=== PATIENT | female | born 1955 | race Caucasian/White ===

== ENCOUNTER 2023-05-03 08:29 | Outpatient (OUT) | payer MEDICARE, OTHER, SELFPAY ==
[2023-05-03 09:22] LABS: Basophils Percent Auto 0.6 % (0.2-2.0); Eosinophils Absolute Auto 0.1 10^3/uL (0.0-0.7); Eosinophils Percent Auto 1.2 % (0.9-7.0); Hematocrit 41.6 % (36.0-48.0); Hemoglobin 13.5 g/dL (12.0-16.0); Immature Granulocytes Abs Auto 0.02 10^3/uL (0.00-0.03); Immature Granulocytes Pct Auto 0.4 % (0.0-0.5); Lymphocytes Absolute Auto 1.3 10^3/uL (1.2-3.8); Lymphocytes Percent Auto 24.7 % (20.5-60.0); Mean Corpuscular HGB Conc 32.5 g/dL (29.9-35.2); Mean Corpuscular Hemoglobin 30.8 pg (26.7-34.0); Mean Corpuscular Volume 94.8 fL (81.0-99.0); Mean Platelet Volume 10.1 fL (9.5-13.5); Monocytes Absolute Auto 0.4 10^3/uL (0.3-0.8); Monocytes Percent Auto 7.5 % (1.7-12.0); Neutrophils Absolute Auto 3.3 10^3/uL (1.4-6.5); Neutrophils Percent Auto 65.6 % (43.0-75.0); Platelet Count 258 10^3/uL (150-450); Red Blood Count 4.39 10^6/uL (4.20-5.40); Red Cell Distribution Width 13.2 % (11.0-15.0); White Blood Count 5.1 10^3/uL (4.0-11.0)
[2023-05-03 09:47] LABS: Anion Gap 11.7; Calcium 8.8 mg/dL (8.5-10.1); Carbon Dioxide 29.4 mmol/L (21.0-32.0); Chloride 102 mmol/L (98-107); Estimated GFR (African America >60 (>=60); Estimated GFR (Non-African Ame >60 (>=60); Glucose 92 mg/dL (74-106); Potassium 4.1 mmol/L (3.5-5.1); Sodium 139 mmol/L (136-145); Thyroid Stimulating Hormone 3.408 uIU/mL (0.358-3.740)
== END 2023-05-03 08:30 | disposition home or self-care (01) ==
LOC: LAB 08:34
PROVIDERS: PCP Internal Medicine; Visit Provider Internal Medicine
DX: R53.83 Other fatigue (principal); E78.01 Familial hypercholesterolemia; E55.9 Vitamin D deficiency, unspecified; E53.8 Deficiency of other specified B group vitamins
CPT/HCPCS: 36415; 80048; 82306; 82607; 84443; 85025

== ENCOUNTER 2024-05-03 08:26 | Outpatient (OUT) | payer OTHER, SELFPAY ==
[2024-05-03 09:21] LABS: Basophils Percent Auto 0.6 % (0.2-2.0); Eosinophils Percent Auto 0.8 % (0.9-7.0); Hemoglobin 13.3 g/dL (12.0-16.0); Immature Granulocytes Abs Auto 0.01 10^3/uL (0.00-0.03); Immature Granulocytes Pct Auto 0.2 % (0.0-0.5); Lymphocytes Absolute Auto 1.4 10^3/uL (1.2-3.8); Mean Corpuscular HGB Conc 32.4 g/dL (29.9-35.2); Mean Corpuscular Hemoglobin 30.4 pg (26.7-34.0); Mean Corpuscular Volume 93.8 fL (81.0-99.0); Mean Platelet Volume 10.1 fL (9.5-13.5); Monocytes Absolute Auto 0.4 10^3/uL (0.3-0.8); Monocytes Percent Auto 8.3 % (1.7-12.0); Neutrophils Absolute Auto 2.9 10^3/uL (1.4-6.5); Neutrophils Percent Auto 61.1 % (43.0-75.0); Platelet Count 254 10^3/uL (150-450); Red Blood Count 4.37 10^6/uL (4.20-5.40); Red Cell Distribution Width 13.1 % (11.0-15.0); White Blood Count 4.7 10^3/uL (4.0-11.0)
[2024-05-03 09:45] LABS: Alanine Aminotransferase 26 U/L (14-59); Albumin Globulin Ratio 1.3; Albumin Level 3.7 g/dL (3.4-5.0); Alkaline Phosphatase 77 U/L (46-116); Anion Gap 13.5; Aspartate Amino Transferase 10 U/L (15-37); BUN Creatinine Ratio 17.5; Bilirubin Total 0.6 mg/dL (0.2-1.0); Calcium 8.6 mg/dL (8.5-10.1); Carbon Dioxide 27.9 mmol/L (21.0-32.0); Chloride 105 mmol/L (98-107); Chol HDL Ratio 4.1; Cholesterol 256 mg/dL (<=200); Estimated GFR (African America >60 (>=60 mL/min/1.73m^2); Estimated GFR (Non-African Ame 57 (>=60 mL/min/1.73m^2); Globulin 2.9 g/dL; Glucose 89 mg/dL (74-106); HDL Cholesterol 63 mg/dL (40-60); Potassium 4.4 mmol/L (3.5-5.1); Sodium 142 mmol/L (136-145); Thyroid Stimulating Hormone 2.685 uIU/mL (0.358-3.740); Total Protein 6.6 g/dL (6.4-8.2); Triglycerides 123 mg/dL (<=150); VLDL CHOLESTEROL 24.6 mg/dL
[2024-05-04 04:08] LABS: Vitamin B12 197 pg/mL (232-1245)
== END 2024-05-03 08:27 | disposition home or self-care (01) ==
LOC: LAB 08:28
PROVIDERS: PCP Internal Medicine; Visit Provider Internal Medicine
DX: E55.9 Vitamin D deficiency, unspecified (principal); E03.9 Hypothyroidism, unspecified; D64.9 Anemia, unspecified; E78.00 Pure hypercholesterolemia, unspecified; R53.83 Other fatigue
CPT/HCPCS: 36415; 80053; 80061; 82306; 82607; 84443; 85025

== ENCOUNTER 2025-05-11 09:30 | Outpatient (OUT) | payer OTHER, SELFPAY ==
--- OUTSIDE RECORDS SUMMARY | 2025-05-11 09:35 | XMS_ITS | CCD ---
Author Organization [facility] Care Team Providers Care Matrix Repairer Name Role Phone Jose Patel Primary Care Provider JOSE PATEL Referring Unavailable JOSE PATEL Primary Care Unavailable ANABEL TRIPP Referring Unavailable JOSE PATEL Primary Care Unavailable Jose Patel Primary Care Provider [phone] Jose Patel Primary Care Provider JOSE PATEL Primary Care Physician DO Jose Patel Primary Care Provider [phone] MD Perez Meyers Attending Provider [phone] REQUEST, NONE LISTED Consulting Unavaila ble REQUEST, NONE LISTED Admitting Unavaila ble REQUEST, NONE LISTED Attending Unavaila ble AMANDA, DR GARCIA Primary Care Unavailable REQUEST, NONE LISTED Admitting Unavaila ble REQUEST, NONE LISTED Attending Unavaila ble BALL, DR GARCIA Primary Care Unavailable REQUEST, NONE LISTED Consulting Unavaila ble REQUEST, NONE LISTED Admitting Unavaila ble REQUEST, NONE LISTED Attending Unavaila ble BALL, DR GARCIA Primary Care Unavailable REQUEST, NONE LISTED Consulting Unavaila ble DO Jose Patel Primary Care Provider MD Perez Meyers Attending Provider Jose Ptael Unavailable Jose Patel MD Primary Care Provider Jose Patel DO Primary Care Provider Perez Meyers MD Attending Provider [phone] Perez Meyers Attending Unavailable Perez Meyers Admitting Unavailable Jose Patel Primary Care Unavailable Jose Patel MD Primary Care Provider Jose Patel DO Primary Care Provider TOMER BUSTAMANTE Attending Unavailable PEREZ MEYERS Referring Unavailable TOMER BUSTAMANTE Attending Unavailable PEREZ MEYERS Attending Unavailable Allergies Allergy ClassificationReported Allergen(s)Allergy TypeDate of OnsetReaction(s) FacilityOpioid Agonists (1 source)CodeineDrug Aaqcujs80-93-1370OfwblodswvsSnvhkmwqd Clinic (14 sources)Codeine; Translations: [codeine]Drug Rxrpfoo54-97-7443Mxjiknx (substance), GI intolerance, OtherFisher [facility] ([facility] source)patient allergy list reviewed by nurse or physiciaPropensity to adverse umnxksjgg45-84-8394Rdombkm:DND Consulting Other (1 source)CodeineDrug Kuglqxj62-86-8019FapislapsNationwide Children'S Hospital Repository Medications Current Medications MedicationDrug Class(es)DatesSig (Normalized)Sig (Original)plenvu 140 gm solution reconstituted (4 sources)Osmotic Laxative, Vitamin CStart: 78-79-5962Xanpap 140 GM dose 1 pouch at 4pm, dose 2 pouch A & B at 11pm Orally BID for 1 days BIN:[id number] PCN: [id number] GROUP:[id number] ID:[id number] October, ActiveCalcium (6 sources)Phosphate Binder, CalciumCALCIUM PO Take by mouth in the morning and in the evening. ActiveCALCIUM PO Take by mouth twice a day. ActiveCalcium- Vitamin D3-Vitamin K (Viactiv) 650 mg-12.5 mcg-40 mcg tablet,chewable (1 source)Start: 03-85-1875Ayxfiuz-Vitamin D3-Vitamin K (Viactiv) 650 mg-12.5 mcg-40 mcg tablet,chewable Active TAB PO May 10, 2024 12:00amdocusate sodium 100 mg oral capsule (2 sources)Start: 36-24-6667fxte 1 capsule by mouth twice daily as needed for constipationColace 100 mg Cap 100 mg = 1 cap(s), Oral, BID, PRN for constipation, # 20 cap(s), Refills(s) 0 Start Date: 09/26/21 Status: Ordered ergocalciferol 1.25 mg oral capsule (5 sources)Provitamin D2 CompoundStart: 65-53-3905hxrr 1 capsule by mouth every weekErgocalciferol (Vitamin D2) 1,250 mcg (50,000 unit) capsule Active 1250 MCG PO every week May 10, 2024 12:00amStart: 03-37-0580ndqc 1 capsule by mouth every week as neededErgocalciferol 14877 UNIT 1 capsule Orally Once weekly for 90 days October, Not-Taking/PRNStart: 33-82-9669nequ 1 capsule by mouth every weekErgocalciferol 88039 UNIT 1 capsule Orally Once weekly for 90 days October, Not-Takinghydrocortisone acetate 25 mg rectal suppository (3 sources)CorticosteroidStart: 01-78-8240amnksajzyhzvqp (Anusol-HC) 25 MG suppository Indications: Bleeding hemorrhoids Insert 1 suppositorytwice daily for 2 weeks. 28 suppository 04/22/2024 ActiveMultiple Vitamins Tab (2 sources)Start: 99-05-5829Rnjtcicn Vitamins Tab 1 tab(s), Chewed, Daily, Refill(s) 0 Start Date: 09/25/21 Status: Orderedpolyethylene glycol 3350 29787 mg powder for oral solution (2 sources)Osmotic LaxativeStart: 69-24-8347MzrjThg oral powder for reconstitution 17 gram, Oral, Daily, 255 gram, Refill(s) 0, dissolve in water before taking Start Date: 09/26/21 Status: Orderedsolifenacin succinate 5 mg oral tablet (6 sources)Cholinergic Muscarinic AntagonistStart: 04-22-2024 End: 51-76-3451efwt 1 tablet by mouth once dailysolifenacin (VESIcare) 5 MG tablet Indications: OAB (overactive bladder) Take 1 tablet (5 mg) by mouth Daily Swallow tablet whole; do not crush, chew, or split. 30 tablet 11 04/22/2024 04/22/2025 ActiveViactiv 500-500-40 MG-UNT-MCG (4 sources)take 1 tablet by mouth once dailyViactiv 500-500-40 MG-UNT-MCG 1 tablet with a meal Orally Once a day ActiveViactiv Multi-Vitamin (2 sources)Start: 35-84-0876Joifojx Multi-Vitamin 1 tab(s), Chewed, Daily, Refill(s) 0 Start Date: 09/25/21 Status: Orderedvitamin b12 1 mg/ml injectable solution (4 sources)Vitamin G31Fmtal: 85-42-4626Ktooppksyjnjfp 1000 MCG/ML 1 ml Injection once a month Jan, ActiveStart: 06-21-5786Mezlmklbwirvve 1000 MCG/ML 1 ml Injection once a month Jan, ActiveVitamin D3 1000 intl units oral capsule (2 sources)Start: 66-73-3169wglo 1 capsule by mouth once dailyVitamin D3 1000 intl units oral capsule 25 mcg = 1 cap(s), Oral, Daily, Refills(s) 0 Start Date: 09/25/21 Status: Ordered Completed/Discontinued Medications MedicationDrug Class(es)DatesSig (Normalized)Sig (Original)CA CARBONATE/VITAMIN D3/VIT K (VIACTIV ORAL) (1 source)CA CARBONATE/VITAMIN D3/VIT K (VIACTIV ORAL) Take by mouth once daily. 0 ActiveComment on above:Take by mouth once daily.Calcium Carbonate / vitamin D3 (1 source)CALCIUM CARBONATE/VITAMIN D3 (VITAMIN D-3 ORAL) Take 500 Units by mouth. 0 ActiveComment on above:Take 500 Units by mouth.calcium, elemental, Tab (1 source)calcium, elemental, Tab Take by mouth twice daily. 0 ActiveComment on above:Take by mouth twice daily.CYANOCOBALAMIN, VITAMIN B-12, (VITAMIN B-12 INJECTION) (1 source)CYANOCOBALAMIN, VITAMIN B-12, (VITAMIN B-12 INJECTION) by INJECTION(UNSPECIFIED PARENTERAL ROUTES) route once every month. 0 ActiveComment on above:by INJECTION(UNSPECIFIED PARENTERAL ROUTES) route once every month.24 hr darifenacin 7.5 mg extended release oral tablet (6 sources)Cholinergic Muscarinic AntagonistStart: 05-10-2024 End: 67-07-8573ocvy 1 tablet by mouth once dailyDarifenacin 7.5 mg tablet extended release 24 hr Discontinued 7.5 MG PO Daily May 10, 2024 12:00am May 10, 2024 10:35amEnablex 7.5 MG 1/2 TABLET Orally PRN for 30 day(s) Not-Taking/PRNtake 1 tablet by mouth every twenty-four hours as needed darifenacin (ENABLEX) 7.5 mg 24 hr tablet Take 7.5 mg by mouth as needed. 0 ActiveComment on above:Take 7.5 mg by mouth as needed.estrogens, conjugated (snf) 0.625 mg/ml vaginal cream (7 sources)EstrogenStart: 05-10-2024 End: 01-30-2667Uqfpopeftw Estrogens (Premarin) 0.625 mg/gram cream Discontinued VAGINAL May 10, 2024 12:00am May 10, 2024 10:35am FreeTextSig: Vaginal; Note: Source Status: Taking; Provider: Amanda Garcia ( ) Premarin 0.625 MG/GM Vaginal ActivePremarin 0.625 MG/GM Vaginal Activetake 1 tablet by mouth once dailyestrogens conjugated (PREMARIN) 0.3 mg tablet Take 0.3 mg by mouth once daily. 0 Activeconjugated estrogens (PREMARIN) vaginal cream Use vaginally once daily. 0 ActiveComment on above:Take 0.3 mg by mouth once daily.Use vaginally once daily.famotidine 20 mg oral tablet (1 source)Histamine-2 Receptor Antagonisttake 1 tablet by mouth once daily at bedtimefamotidine (PEPCID AC) 20 mg tablet Take 20 mg by mouth daily at bedtime. 0 ActiveComment on above:Take 20 mg by mouth daily at bedtime.levothyroxine sodium 0.075 mg oral tablet (6 sources)l-ThyroxineStart: 05-10-2024 End: 05-11-0726Rzvpprnovferb 75 mcg tablet Discontinued 75 MCG PO May 10, 2024 12:00am May 10, 2024 10:36am 1 tablet 5 days a week and 1/2 tablet on friday and tart: 48-17-1801Fociodwfiykvh Sodium 75 MCG 1 tablet 5 days a week and 1/2 tablet on friday and Orally daily for 90 daysz Mar, Not-Taking/PRNStart: 43-77-3665Wttvudgpfwygz Sodium 75 MCG 1 tablet 5 days a week and 1/2 tablet on friday and Orally daily for 90 daysz Mar, Not-TakingLevothyroxine 75 mcg cap Take by mouth once daily. Mondays and take 1/2 a tablet 0 ActiveComment on above:Take by mouth once daily. Mondays and take 1/2 a hr scopolamine 0.0139 mg/hr transdermal system (5 sources)AnticholinergicStart: 05-10-2024 End: 87-17-8730Lfjbkfennag Base 1 mg over 3 days patch 3 day Discontinued TRANSDERML May 10, 2024 12:00am May 10, 2024 10:36am FreeTextSi patch to skin behind the ear as needed Transdermal Every 72 hours; Note: Source Status: Refill; Refills: 0; Qty: 1 Pack; Provider: Amanda Garcia EStart: 36-90-4335Nziwjsnbm-Scop 1 MG/3DAYS 1 patch to skin behind the ear as needed Transdermal Every 72 hours for 7days Aug, Activevitamin K1 (1 source)Warfarin Reversal Agent, Vitamin KPHYTONADIONE (VITAMIN K ORAL) Take 40 mcg by mouth. 0 ActiveComment on above:Take 40 mcg by mouth. Problems Active Problems Problem ClassificationProblemDateDocumented DateEpisodic/ChronicAnal and rectal conditions (6 sources)Anorectal pain; Translations: [Other specified diseases of anus and rectum]Onset: 811108-40-1244EzbnmrasNvljeuu disorders (1 source)Generalized anxiety disorder; Translations: [Generalized anxiety disorder]ChronicCataract (6 sources)Bilateral age-related nuclear cataracts; Translations: [Age-related nuclear cataract, bilateral]Onset: 237955-56-7095MkujqwcBnxrisixde and other anemia (4 sources)Pernicious anemia; Translations: [Vitamin B12 deficiency anemia due to intrinsic factor deficiency]EpisodicDeficiency and other anemia (1 source)Vitamin B12 deficiency anemia due to intrinsic factor deficiency EpisodicDisorders of lipid metabolism (16 sources)Hyperlipidemia; Translations: [Hyperlipidemia, unspecified]Onset: 01-12-2018 Resolved: 55-41-6666MtgurwhOvjuatnvss disorders (7 sources)Gastroesophageal reflux disease without esophagitis; Translations: [Gastro-esophageal reflux disease without esophagitis]Onset: 41-35-2678Zbjraem Gastrointestinal hemorrhage (6 sources)Hematochezia; Translations: [Melena]Onset: EpisodicGenitourinary symptoms and ill-defined conditions (2 sources)Increased frequency of urination; Translations: [Frequency of micturition]22-95-7331UpzdofqtPpptiamyiaw (8 sources)Bleeding hemorrhoids; Translations: [Unspecified hemorrhoids]Onset: 080159-23-7868GhftjdhhDykaeis and fatigue (6 sources)Malaise and fatigue; Translations: [Other malaise and fatigue]Onset: 32-06-6729EdehoikhQcqeitauyje chest pain (2 sources)Chest pain; Translations: [Chest pain, unspecified]Onset: 09-25-2021 EpisodicNutritional deficiencies (6 sources)Vitamin D deficiency; Translations: [Vitamin D deficiency, unspecified]Onset: 01-12-2018 Resolved: 99-30-7263QtozuqkUpgdhscykjj deficiencies (5 sources)Vitamin B12 deficiency (non anemic); Translations: [Deficiency of other specified B group vitamins]EpisodicOther diseases of bladder and urethra (2 sources)Overactive bladder; Translations: [Overactive bladder]04-22-2024 ChronicOther endocrine disorders (4 sources)Decreased cortisol level; Translations: [Unspecified adrenocortical insufficiency]ChronicOther injuries and conditions due to external causes (1 source)History of fall; Translations: [History of falling]EpisodicOther injuries and conditions due to external causes (2 sources)Motion sickness, initial encounterEpisodicOther screening for suspected conditions (not mental disorders or infectious disease) (7 sources)Encounter for screening mammogram for malignant neoplasm of breast; Translations: [Breast neoplasm screening status]Onset: 35-59-8347AkjeyzwoQfjtf skin disorders (4 sources)Alopecia; Translations: [Nonscarring hair loss, unspecified]Episodic Residual codes; unclassified (1 source)Procedure carried out on subject; Translations: [Encounter for prophylactic measures, unspecified]Onset: 31-01-9072DembopplEhsyqqf disorders (2 sources)Hypothyroidism; Translations: [Hypothyroidism, unspecified]04-30-2024 ChronicUnclassified (2 sources)Patient encounter status; Translations: [Breast cancer screening by mammogram]Urinary tract infections (1 source)Urethral syndrome; 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, unspecified] Episodic Past or Other Problems Problem ClassificationProblemDateDocumented DateEpisodic/ChronicAbdominal pain (1 source)Epigastric pain; Translations: [Epigastric pain]Onset: 01-03-2017 Resolved: 00-92-2207BppfjzywPoozgdov reactions (1 source)Contact dermatitis; Translations: [Unspecified contact dermatitis, unspecified cause] Resolved: 20-13-2365EohunblqFvttq gastrointestinal disorders (1 source)Esophageal dysphagia; Translations: [Dysphagia, unspecified]Onset: 419675-89-4596DzlezpqlFxmof gastrointestinal disorders (1 source)Heartburn; Translations: [Heartburn]Onset: EpisodicOther gastrointestinal disorders (1 source)Belching symptom; Translations: [Eructation]Onset: 03-17-2012 70-25-2243RbawyzllKflfd gastrointestinal disorders (1 source)Alteration in bowel elimination; Translations: [Change in bowel habit] Onset: 926859-89-7479RmnwdfssYnkde gastrointestinal disorders (1 source)Pharyngeal dysphagia; Translations: [Dysphagia, pharyngoesophageal phase]Onset: 01-03-2017 Resolved: 99-66-3685MucinpkiRobwl hematologic conditions (1 source)History of immune disorder; Translations: [Personal history of other endocrine, metabolic, and immunity disorders]Onset: 01-03-2017 Resolved: 89-02-4393Pgjofnwq Results Test NameValueInterpretationReference RangeFacilityMM screening mammo BI w/CADon 41-16-6253AC screening mammo BI w/CADDAYTON [facility] [place] [address] Mammography Report Signed Patient: Mindi Sadler MR#: [id number] 2 : 1955 Acct:[id number] Age/Sex: 69 / F ADM Date: 05/07/24 Loc: [place] Room: Type: [facility] Attending Dr: Perez Meyers MD Copies to: MD Jose VERNON DO Ordering Provider: PEREZ MEYERS MD Date of Service: 05/07/24 MM/MM screening mammo BI w/CAD: SCREENING CLINICAL DATA: Screening for malignancy. BILATERAL SCREENING MAMMOGRAMS - FULL FIELD DIGITAL WITH TOMOSYNTHESIS AND CAD Tomosynthesis craniocaudal and mediolateral oblique views of both breasts were obtained using low- dose digital technique. Comparison is made to prior studies from 04/29/2023, 04/22/2022, 04/20/2021, and 02/23/2020. This examination was reviewed with the aid of CAD. There are scattered fibroglandular densities. 1 noted along the chest wall. There is a biopsy clip on the right. Benign-appearing calcifications are present. There are no dominant masses, typically malignant calcifications or architectural distortion. There has been no significant interval change. MM/MM screening mammo BI w/CAD IMPRESSION: NO MAMMOGRAPHIC EVIDENCE OF MALIGNANCY. ROUTINE FOLLOW-UP IS RECOMMENDED IN ONE YEAR. RESULT CODE: 2 Benign Findings(s) DENSITY CODE: 2 (approximately 25-50% glandular) FOLLOW UP: 1YR The false-negative rate of mammography is approximately 10-percent. Management of a palpable abnormality must be based on clinical grounds. Patient was entered into a reminder system with a target due date for the next mammogram. Impression dictated by: Isaiah Matamoros M.D.05/07/2024 4:55 PM Dictation Location: [facility] Transcribed By: [facility] 05/07/241654 Dictated By: Isaiah Matamoros II, MD 05/07/241651 Signed By: 05/07/241654[facility] Physician GroupMammography reportOrdered By: Isaiah Matamoros on 11-64-0272Dvgzvvfksh imaging [facility] [place] [address] [place] [address] Mammography Report Signed Patient: Mindi Sadler MR#: [id number] : 1955 Acct:[id number] Age/Sex: 69 / F ADM Date: 4 Loc: [place] Room: Type: [facility] Attending Dr: Perez Meyers MD Copies to: MD Jose VERNON DO~ Ordering Provider: PEREZ MEYERS MD Date of Service: 05/07/24 MM/MM screening mammo BI w/CAD: SCREENING CLINICAL DATA: Screening for malignancy. BILATERAL SCREENING MAMMOGRAMS - FULL FIELD DIGITAL WITH TOMOSYNTHESIS AND CAD Tomosynthesis craniocaudal and mediolateral oblique views of both breasts were obtained using low-dose digital technique. Comparison is made to prior studies from 04/29/2023, 04/22/2022, 04/20/2021, and 02/23/2020. This examination was reviewed with the aid of CAD. There are scattered fibroglandular densities. 1 noted along the chest wall. There is a biopsy clip on the right. Benign-appearing calcifications are present. There are no dominant masses, typically malignant calcifications or architectural distortion. There has been no significant interval change. MM/MM screening mammo BI w/CAD IMPRESSION: NO MAMMOGRAPHIC EVIDENCE OF MALIGNANCY. ROUTINE FOLLOW-UP IS RECOMMENDED IN ONE YEAR. RESULT CODE: 2 Benign Findings(s) DENSITY CODE: 2 (approximately 25-50% glandular) FOLLOW UP: 1YR The false-negative rate of mammography is approximately 10-percent. Management of a palpable abnormality must be based on clinical grounds. Patient was entered into a reminder system with a target due date for the next mammogram. Impression dictated by: Isaiah Matamoros M.D.05/07/2024 4:55 PM Dictation Location: [facility] Transcribed By: MATTHEW 05/07/241654 Dictated By: Isaiah Matamoros II, MD 05/07/241651 Signed By: 05/07/241654 [facility] Work Phone: Basophils Auto (Bld) [#/Vol]on 87-63-6743Shgnxlano (Bld) [#/Vol]Automated basophil count0.0-0.1FMercy Health Tiffin Hospital Basophils/100 WBC Auto (Bld)on 71-47-6094Blorjrcgk/100 WBC (Bld)Automated basophil %0.2-2.0[facility] HospitalCholesterol in LDL Calc [Mass/Vol]on 40-97-5619Xtwkbpwnoej in LDL [Mass/Vol]Cholesterol in LDL [Mass/volume] in Serum or Plasma by calculationNationwide Children'S Hospital Comment on above:<100 mg/dl RSZLOMW238-073 mg/dl NEAR OR ABOVE DHGCGDI905-374 mg/dl BORDERLINE BZLN155-262 mg/dl HIGH>190 mg/dl VERY HIGHCholesterol in VLDL Calc [Mass/Vol]on 58-44-6819Wtdfyxhmmfk in VLDL [Mass/Vol]Cholesterol in VLDL [Mass/volume] in Serum or Plasma by calculationNationwide Children'S Hospital Eosinophils/100 WBC Auto (Bld)on 02-70-8496Jezfybeolmc/100 WBC (Bld)Automated eosinophil %Low0.9-7.0[facility]S HospitalErythrocyte distribution width Auto (RBC) [Ratio]on 05-78-2023Yyfbjfungfd distribution width (RBC) [Ratio]Erythrocyte distribution width [Ratio] by Automated count11.0-15.0 [facility] HospitalEstimated glomerular filtration rate (GFR) non- Americanon 26-19-2253KHP/1.73 sq M.predicted among non-blacks MDRD (S/P/Bld) [Vol rate/Area]Estimated glomerular filtration rate (GFR) non- AmericanLow>=60 mL/min/1.73m 2FMercy Health Tiffin HospitalGlobulin Calc (S) [Mass/Vol]on 16-43-9431Sgmjuucu (S) [Mass/Vol]Serum globulin measurement by calculation (mass/volume)[facility] HospitalHematocrit Auto (Bld) [Volume fraction]on 24-88-7599Ksgvmrtypp (Bld) [Volume fraction]Hematocrit [Volume Fraction] of Blood by Automated count36.0-48.0[facility] HospitalHemoglobin [Mass/volume] in Bloodon 58-12-7792Mwbvqvcqvl (Bld) [Mass/Vol] Hemoglobin [Mass/volume] in Blood12.0-16.0[facility] Laboratory - Chemistry and Chemistry - challengeon 04-37-2737Oiavuzt [Mass/Vol] 3.7 g/dL3.4-5.0[facility] HospitalALP [Catalytic activity/Vol]77 U/M51-189TayuaeaybNationwide Children'S HospitalALT [Catalytic activity/Vol]26 U/L 14-59[facility] HospitalAST [Catalytic activity/Vol]10 U/PCwg99-43 [facility] HospitalBilirubin [Mass/Vol]0.6 mg/dL0.2-1.0[facility] HospitalCalcium [Mass/Vol]8.6 mg/dL8.5-10.1FMercy Health Tiffin HospitalChloride [Moles/Vol]105 mmol/B45-102BgvgdngqxNationwide Children'S HospitalCholesterol [Mass/Vol]256 mg/dLHigh<=200[facility] Cholesterol in HDL [Mass/Vol]63 mg/zCHilw10-38KeqxsbfydNationwide Children'S Hospital Comment on above:> or =60 mg/dl - LOW CARDIOVASCULAR RISK<40 mg/dl - HIGH CARDIOVASCULAR RISKCO2 [Moles/Vol]27.9 mmol/L21.0-32.0[facility] HospitalCobalamin (Vitamin B12) [Mass/Vol]197 pg/eIJwmbqrzg708-6826ZqvuccyvwNationwide Children'S HospitalComment on above:Performed at: [employer] [id number] Director: Elias Abernathy PhD, Phone: [phone] [Mass/Vol]0.97 mg/dL0.55-1.02[facility] HospitalGFR/1.73 sq M.predicted MDRD (S/P/Bld) [Vol rate/Area]mL/min/{1.73_m2}>=60 mL/min/1.73m 2FMercy Health Tiffin HospitalGlucose [Mass/Vol]89 mg/cD41-372 [facility] HospitalPotassium [Moles/Vol]4.4 mmol/L3.5-5.1FMercy Health Tiffin HospitalProtein [Mass/Vol]6.6 g/dL6.4-8.2FProvidence Hospitalodium [Moles/Vol]142 mmol/C125-299GjaloapaxNationwide Children'S HospitalTriglyceride [Mass/Vol]123 mg/dL<=150[facility]S HospitalTSH Qn2.685 m[IU]/L0.358-3.740[facility] HospitalUrea nitrogen [Mass/Vol]17.0 mg/dL7.0-18.0[facility] HospitalUrea nitrogen/Creatinine [Mass ratio]17.5 mg/mgNationwide Children'S Hospital Laboratory - Hematology and Cell countson 17-57-6854Wlantlgb granulocytes/100 WBC (Bld)0.2 %0.0-0.5FMercy Health Tiffin HospitalLeukocytes [#/volume] corrected for nucleated erythrocytes in Blood by Automated counon 64-56-9626NTB corrected for nucl RBC Auto (Bld) [#/Vol]Leukocytes [#/volume] corrected for nucleated erythrocytes in Blood by Automated coun4.0-11.0[facility]S HospitalLymphocytes Auto (Bld) [#/Vol]on 05-90-8984Xgpceagrjel (Bld) [#/Vol]Lymphocytes [#/volume] in Blood by Automated count1.2-3.8[facility] HospitalLymphocytes/100 WBC Auto (Bld)on 05-03-2024 Lymphocytes/100 WBC (Bld)Lymphocytes/100 leukocytes in Blood by Automated count 20.5-60.0[facility] CenterH Auto (RBC) [Entitic mass]on 96-02-2840IUR (RBC) [Entitic mass]MCH [Entitic mass] by Automated count26.7-34.0 [facility] HospitalMCHC Auto (RBC) [Mass/Vol]on 28-49-6007NVPN (RBC) [Mass/Vol]MCHC [Mass/volume] by Automated count29.9-35.2FMercy Health Tiffin HospitalMCV Auto (RBC) [Entitic vol]on 60-91-1074DBW (RBC) [Entitic vol] MCV [Entitic volume] by Automated count81.0-99.0[facility] HospitalMonocytes Auto (Bld) [#/Vol]on 61-25-5433Aynqfqbku (Bld) [#/Vol]Automated blood monocyte count0.3-0.8[facility] HospitalMonocytes/100 WBC Auto (Bld)on 86-92-6188Hykotggnw/100 WBC (Bld)Automated monocyte %1.7-12.0 [facility] HospitalNeutrophils Auto (Bld) [#/Vol]on 05-03-2024 Neutrophils (Bld) [#/Vol]Neutrophils [#/volume] in Blood by Automated count 1.4-6.5FMercy Health Tiffin HospitalNeutrophils/100 WBC Auto (Bld)on 75-76-6971Nqaintdamsc/100 WBC (Bld)Automated neutrophil %43.0-75.0[facility] HospitalNo Panel Informationon 30-29-461712664670-Ucgfvku Vitamin D Total27.8 ng/mLNationwide Children'S HospitalComment on above:<20 ng/mL Vit D stcrurnru12-<30 ng/mL Vit D udrqcuhptrhp79-750 ng/mL Vit D sufficient>100 ng/mL Potential ToxicityEosinophils # (Auto)0.0 10 3/uL0.0-0.7FMercy Health Tiffin HospitalImmature Granulocyte # (Auto)0.01 10 3/uL0.00-0.03[facility]S HospitalPlatelet mean volume Auto (Bld) [Entitic vol]on 29-59-7238Cahdtwwl mean volume (Bld) [Entitic vol]Platelet mean volume [Entitic volume] in Blood by Automated count9.5-13.5FMercy Health Tiffin Hospital Platelets Auto (Bld) [#/Vol]on 25-76-4443Wbjdtjyef (Bld) [#/Vol]Platelets [#/volume] in Blood by Automated sdfel353-047UffdtkwlsNationwide Children'S Hospital RBC Auto (Bld) [#/Vol]on 30-87-5327POQ (Bld) [#/Vol]Erythrocytes [#/volume] in Blood by Automated count4.20-5.40K[facility]tering Health Springfielderum or plasma albumin/globulin mass ratioon 36-27-1832Izhqncw/Globulin [Mass ratio] Serum or plasma albumin/globulin mass ratioNationwide Children'S Hospital Serum or plasma anion gap determinationon 04-04-0712Prjps gap [Moles/Vol]Serum or plasma anion gap determinationKettering Health Springfielderum or plasma total cholesterol/high density lipoprotein (HDL) cholesterol mass margaret 75-65-2026Rlbaukhrivq.total/Cholesterol in HDL [Mass ratio]Serum or plasma total cholesterol/high density lipoprotein (HDL) cholesterol mass ratNationwide Children'S HospitalComment on above:3.3 - 4.4 LOW RISK4.4 - 7.1 AVERAGE RISK7.1 - 11.0 MODERATE RISK>11.0 HIGH RISKUrinalysis macro (dipstick) panel (U) on 86-89-1424Vgcyinsew, UANegativeNegative - 4(70) +++ mg/dLNOMS Healthcare Blood, UANegativeNegative - 50 Vignesh/mcLNOMS HealthcareClarity, UACloudyNOMS HealthcareColor, UAAmberNOMS HealthcareGlucose, UANegativeNegative - 2000(110) ++++ mg/dLNOMS HealthcareKetones, UANegativeNegative - 160(16) ++++ mg/dLNOMS HealthcareLeukocytes, UANegativeNegative - 500+++ Cecil/mcLNOMS HealthcareNitrite, UANegativeNegative - PositiveNOMS HealthcarepH, UA65 - 9NOMS HealthcareProtein, UATraceNegative - 2000(20) ++++ mg/dLNOMS HealthcareSpec Grav, UA1.0151 - 1.03 NOMS HealthcareUrobilinogen, UA>=8.00.2 - 12 mg/dLNOMS HealthcareNOMS Healthcare CBC AUTO DIFFon [id number] #0.0 103/ulNormal0.0-0.1[facility] Comment on above:Performed By: #### DATCBC #### [facility] [address] [address] [address] Es ParisBasophils/100 WBC (Bld)0.6 %Normal0.2-2.0[facility] Comment on above:Performed By: #### DATCBC #### [facility] [address] [address] [address] Es Kruger #0.1 103/ulNormal0.0-0.7[facility] HospitalComment on above: Performed By: #### DATCBC #### [facility] [address] [address] [address] Es Sandovalosinophils/100 WBC (Bld)2.9 %Normal0.9-7.0[facility] Comment on above:Performed By: #### DATCBC #### [facility] [address] [address] [address] Es Sandovalrythrocyte distribution width (RBC) [Ratio]13.0 %Uencrf73.0-15.0 [facility] HospitalComment on above:Performed By: #### DATCBC #### [facility] [address] [place] [address] Dr. Es Agarwalatocrit (Bld) [Volume fraction]41.3 %Dmkvpa11.0-48.0[facility] HospitalComment on above:Performed By: #### DATCBC #### [facility] [address] [place] [address] Dr. Es ParisHemoglobin (Bld) [Mass/Vol]13.5 g/jLJnqpor74.0-16.0[facility] HospitalComment on above:Performed By: #### DATCBC #### [facility] [address] [place] [address] Dr. Es Smith #0.01 10e3/ulNormal0.00-0.03[facility] HospitalCommunson healthcare [facility] on above:Performed By: #### DATCBC #### [facility] [address] [place] [address] Dr. Es Smith %0.2 %Normal0.0-0.5The [facility] HospitalComment on above: Performed By: #### DATCBC #### [facility] [address] [place] [address] Dr. Es Rivers #1.3 103/ulNormal1.2-3.8[facility] HospitalCommunson healthcare [facility] on above:Performed By: #### DATCBC #### [facility] [address] [place] [address] Dr. Es Slatermphocytes/100 WBC (Bld)26.5 %Geqwtk84.5-60.0[facility] HospitalComment on above:Performed By: #### DATCBC #### [facility] [address] [place] [address] Dr. Es Bermudez (RBC) [Entitic mass]30.5 pzQqeblp44.7-34.0[facility] HospitalComment on above:Performed By: #### DATCBC #### [facility] [address] [address] [address] Es EdgeHC (RBC) [Mass/Vol]32.7 g/oMWrerql79.9-35.2[facility] HospitalComment on above:Performed By: #### DATCBC #### [facility] [address] [place] [address] Dr. Es EdgeV (RBC) [Entitic vol]93.4 dVChceke78.0-99.0[facility] HospitalComment on above:Performed By: #### DATCBC #### [facility] [address] [place] [address] Dr. Es Duffy #0.5 103/ulNormal0.3-0.8[facility] HospitalComment on above:Performed By: #### DATCBC #### [facility] [address] [place] [address] Dr. Es Denneyocytes/100 WBC (Bld)10.5 %Normal1.7-12.0[facility] Comment on above:Performed By: #### DATCBC #### [facility] [address] [place] [address] Dr. Es Valdes #2.9 103/ulNormal1.4-6.5The [facility] HospitalComment on above:Performed By: #### DATCBC #### [facility] [address] [place] [address] Dr. Es Munozutrophils/100 WBC (Bld)59.3 %Aqwswa02.0-75.0The [facility] HospitalComment on above:Performed By: #### DATCBC #### [facility] [address] [place] [address] Dr. Es Messerlet mean volume (Bld) [Entitic vol]9.6 fLNormal9.5-13.5The [facility] HospitalComment on above:Performed By: #### DATCBC #### [facility] [address] [place] [address] Dr. Es ParisPLT246 103/gcDdhygf463-611Ijl Chika HospitalComment on above: Performed By: #### DATCBC #### [facility] [address] [address] [address] Es ParisRBC4.42 106/ulNormal4.20-5.40The [facility] HospitalComment on above:Performed By: #### DATCBC #### [facility] [address] [place] [address] Dr. Es ParisWBC4.9 103/ulNormal4.0-11.0The [facility] HospitalComment on above: Performed By: #### DATCBC #### [facility] [address] [place] [address] Dr. Es Barakat- BASHIR WITH LIPIDon 04-69-0424Wtqef gap [Moles/Vol]6.4 mmol/L NormalThe [facility] HospitalComment on above:Performed By: #### DATBMP #### [facility] [address] [place] [address] Dr. Es ParisCalcium [Mass/Vol]8.9 mg/dLNormal8.5-10.1[facility] Comment on above:Performed By: #### DATBMP #### [facility] [address] [place] [address] Dr. Es ParisChloride [Moles/Vol]102 mmol/ATqfyxb27-959Meb [facility] Comment on above:Performed By: #### DATBMP #### [facility] [address] [place] [address] Dr. Es Kabaesterol [Mass/Vol]265 mg/dLCritically high<=200The [facility] HospitalComment on above:Performed By: #### DATBMP #### [facility] [address] [place] [address] Dr. Es ParisCholesterol in HDL [Mass/Vol]61 mg/dLCritically oyng16-13Fjy [facility] HospitalComment on above:Performed By: #### DATBMP #### [facility] [address] [place] [address] Dr. Yilan ChangCholesterol in LDL [Mass/Vol]182.4 mg/dLSt. Elizabeth HospitalComment on above:Performed By: #### DATBMP #### [facility] [address] [place] [address] Dr. Es ParisCO2 [Moles/Vol]30.8 mmol/GTfzeft69.0-32.0[facility] Comment on above:Performed By: #### DATBMP #### [facility] [address] [place] [address] Dr. Es ParisCreatinine [Mass/Vol]0.86 mg/dLNormal0.55-1.02[facility] HospitalComment on above:Performed By: #### DATBMP #### [facility] [address] [place] [address] Dr. Es SandovalGFR-AF VINCENTIAN>60Normal>=60[facility] HospitalComment on above:Performed By: #### DATBMP #### [facility] [address] [address] [address] Es Avila-NON AF VINCENTIAN>60Normal>=60[facility] HospitalComment on above:Performed By: #### DATBMP #### [facility] [address] [place] [address] Dr. Es ParisGlucose [Mass/Vol]90 mg/xATapfks27-450NsyZanesville City Hospital Comment on above:Performed By: #### DATBMP #### [facility] [address] [place] [address] Dr. Es ParisHDL NORMAL> or = 60 mg/dl - LOW CARDIOVASCULAR RISK <40 mg/dl - HIGH CARDIOVASCULAR RISKSt. Elizabeth HospitalComment on above:Performed By: #### DATBMP #### [facility] [address] [place] [address] Dr. Es ParisLDL CALC NORMALSEE BELOWSt. Elizabeth HospitalComment on above:Result Comment: <100 mg/dl OPTIMAL 100 - 129 mg/dl NEAR OR ABOVE OPTIMAL 130 - 159 mg/dl BORDERLINE HIGH 160 - 189 mg/dl HIGH >190 mg/dl VERY HIGH Performed By: #### DATBMP #### [facility] [address] [address] [address] Es ParisPotassium [Moles/Vol]4.2 mmol/LNormal3.5-5.1[facility] Comment on above:Performed By: #### DATBMP #### [facility] [address] [address] [address] Es ParisSodium [Moles/Vol]135 mmol/LCritically qgv247-683Dfi [facility] HospitalComment on above:Performed By: #### DATBMP #### [facility] [address] [address] [address] Es ParisTriglyceride [Mass/Vol]108 mg/dLNormal<=150[facility] Comment on above:Performed By: #### DATBMP #### [facility] [address] [address] [address] Es ParisUrea nitrogen [Mass/Vol]21.0 mg/dLCritically high7.0-18.0The [facility] HospitalComment on above:Performed By: #### DATBMP #### [facility] [address] [place] [address] Dr. Es Hooker nitrogen/Creatinine [Mass ratio]24.4 mg/mgNoNorwalk Memorial HospitalComment on above:Performed By: #### DATBMP #### [facility] [address] [place] [address] Dr. Es ParisVLDL CALC21.6 mg/dLNoNorwalk Memorial HospitalComment on above: Performed By: #### DATBMP #### [facility] [address] [place] [address] Dr. Es ParisCT CARDIAC SCORINGon [id number] CARDIAC SCORINGAddendum Begins Patient Name: MINDI SADLER ADDENDUM: Technical: The following is to serve as an over-read for an unenhanced cardiac CT, to evaluate the extra vascular structures. Contiguous unenhanced CT sections are performed from the level of the cara to the upper abdomen. Findings: The visualized portions of both lungs are clear. There is no sign of pathologic lymph node enlargement. There is no pericardial or pleural effusion. Images through the upper abdomen are unremarkable. The visualized osseous and soft tissue structures of the chest wall are intact. Impression: The extra vascular structures have an unremarkable CT appearance. Electronically signed by: JERRY HAYWARD MD Addendum Ends Patient Name: MINDI SADLER STUDY: CT CARDIAC SCORING; 02/12/2022 10:57 am INDICATION: Encounter for general adult medical examination without abnormal findings. COMPARISON: None. ACCESSION NUMBER(S): [id number] ORDERING CLINICIAN: JOSE PATEL TECHNIQUE: Using prospective ECG gating, CT scan of the coronary arteries was performed without intravenous contrast. Coronary calcium scoring was performed according to the method of Agatston. CT Dose Reduction Employed: Yes, prospective gating, iterative reconstruction. CT Dose-Length Product (DLP): 60.7 mGy*cm FINDINGS: The score and distribution of calcium in the coronary arteries is as follows: LM 0 LAD 0 LCx 0 RCA 0 Total 0 The visualized mid/lower ascending thoracic aorta measures 3.1 cm in diameter. The heart is normal in size. No pericardial effusion is present. IMPRESSION: 1. Coronary artery calcium score of 0*. *Coronary artery calcium scoring may be helpful in predicting the risk for future coronary heart disease events. According to the [place] [employer] Clinical Expert Consensus Task Force, such testing provides important prognostic information in patients with more than one coronary heart disease risk factor. The coronary artery calcium score correlates with the annual risk of a non-fatal myocardial infarction or coronary heart disease . Coronary artery score Annual Risk 0-99 0.4% 100-399 1.3% >400 2.4% These three breakpoints correspond to lower, intermediate and high risk states for future coronary events. Such information should be used, along with appropriate clinical judgment, to make decisions regarding the intensity of risk factor management strategies to treat blood lipids and to modify other non-lipid coronary risk factors. Reference: Schneider P et al. Circulation. 2007; 115:402-426 Reading Pizzamaker: Dr. Josué Bassett, Date: 02/12/2022 11:50 am Electronically signed by: JERRY HAYWARD MDNew Lifecare Hospitals of PGH - Alle-KiskiDAT - LIPID PROFILEon [id number]-HDL RATIO NORMSEE BELOWNormal The [facility] HospitalCommunson healthcare [facility] on above:Result Comment: 3.3 - 4.4 LOW RISK 4.4 - 7.1 AVERAGE RISK 7.1 - 11.0 MODERATE RISK >11.0 HIGH RISKPerformed By: #### DATLIPI #### [facility] [address] [place] [address] Dr. Es ParisCholesterol [Mass/Vol]276 mg/dLCritically high<=200The [facility] on above:Performed By: #### DATLIPI #### [facility] [address] [place] [address] Dr. Es ParisCholesterol in HDL [Mass/Vol]63 mg/dLCritically sdop93-86RxvWadsworth-Rittman Hospital on above:Performed By: #### DATLIPI #### [facility] [address] [place] [address] Dr. Es ParisCholesterol in LDL [Mass/Vol]182.0 mg/dLSt. Elizabeth HospitalCommunson healthcare cadillac hospital on above:Performed By: #### DATLIPI #### [facility] [address] [place] [address] Dr. Es Kabaestermariana.total/Cholesterol in HDL [Mass ratio]4.4 {ratio} NormalWadsworth-Rittman Hospital on above:Performed By: #### DATLIPI #### [facility] [address] [place] [address] Dr. Es ParisHDL NORMAL> or = 60 mg/dl - LOW CARDIOVASCULAR RISK <40 mg/dl - HIGH CARDIOVASCULAR RISKSt. Elizabeth HospitalCommunson healthcare cadillac hospital on above:Performed By: #### DATLIPI #### [facility] [address] [place] [address] Dr. Es ParisLDL CALC NORMALSEE Memorial Health SystemCommunson healthcare [facility] hospital on above:Result Comment: <100 mg/dl OPTIMAL 100 - 129 mg/dl NEAR OR ABOVE OPTIMAL 130 - 159 mg/dl BORDERLINE HIGH 160 - 189 mg/dl HIGH >190 mg/dl VERY HIGH Performed By: #### DATLIPI #### [facility] [address] [address] [address] Es ParisTriglyceride [Mass/Vol]155 mg/dLCritically high<=150[facility] HospitalComment on above:Performed By: #### DATLIPI #### [facility] [address] [address] [address] Es ParisVLDL CALC31.0 mg/dLNoNorwalk Memorial HospitalComment on above: Performed By: #### DATLIPI #### [facility] [address] [address] [address] Es Quintana Instructionson [id number] Instructions [id number]#1.00CD:[address] [place], [place] [address]Coding Summary.on 16-53-5047Iyxhmq Summary. CD:[id number] [file] cHNl (more content not included)...[facility]In[facility] Clinical Summaryon [id number] Clinical Summary [address] [address] Clinical Summary Person Information: Name: MINDI SADLER Age: 66 Years : 1955 Sex: Female PCP: JOSE PATEL DO Marital Status: Race: White Ethnicity: Non- or Language: Armenian Visit Id: Visit Reason: Chest pain; CHEST PAIN-ST SEGMENT DEPRESSION Speciality: Acuity: Enc Type: Observation Med Service: Medical Arrival: 09/25/2021 04:37:58 Discharge: Dispo Type: Admitted as IP to this Hosp Address: [address] [place] [id number] Provider Notes: Diagnosis: 1:Chest pain; 2:HLD (hyperlipidemia); 3:GERD (gastroesophageal reflux disease); 4:DVT prophylaxis Problems Active GERD (gastroesophageal reflux disease) HLD (hyperlipidemia) Smoking Status: Never Smoker Functional Status: Sensory Deficits: History of Falls: Mobility Assistance Prior to Admission: ADLs: Independent Current Level of Assistance for Self-Care/Mobility: Cognitive Status: Oriented x 3 Allergies codeine (Vomit) Measurements: Height: 165.10 cm Weight: 58.7 kg Blood Pressure: 100 mmHg / 58 mmHg BMI: 21.24 kg/m2 Procedures No Procedures Documented Immunizations No Immunizations Documented This Visit Final Med List: cholecalciferol (Vitamin D3 1000 intl units oral capsule) 1 Capsules By Mouth every day. docusate (Colace 100 mg Cap) 1 Capsules By Mouth 2 times a day as needed for constipation. Refills:0. multivitamin (Multiple Vitamins Tab) 1 Tablets Chewed every day. multivitamin with minerals (Viactiv Multi-Vitamin) 1 Tablets Chewed every day. polyethylene glycol 3350 (MiraLax oral powder for reconstitution) 17 Gram By Mouth every day. dissolve in water before taking. Refills: 0. Care Team Members: Attending Physician: Maximiliano STONE DO Consulting Physician: Referring Physician: Follow up: With: Address: When: [facility] [address] [place], [place] [id number] Business (1) 10/23/2021 10:00 AM With: Address: When: JOSE PATEL [address] [place] [address] Business (1) 10/01/2021 11:30 AM Patient Education Information:[facility]In[facility] Patient Summaryon [id number] Patient Summary [address] [address] Patient Discharge Instructions PERSON INFORMATION Name: MINDI SADLER Date of : 1955 Current Date: 09/26/2021 12:10:49 PHYSICIANS Admitting Physician: Maximiliano STONE DO Primary Care Physician: JOSE PATEL DO PCP Comment: Discharge Diagnosis: 1:Chest pain; 2:HLD (hyperlipidemia); 3:GERD (gastroesophageal reflux disease); 4:DVT prophylaxis Condition at Discharge: Improved MINDI SADLER has been given the following list of follow-up instructions, prescriptions, and patient education materials: PATIENT FOLLOW-UP INFORMATION Diet: Regular Discharge Activity: Discharge Restrictions: Wound Care Instructions: Remove Your Dressing In Days Call Your Doctor For: IF UNABLE TO CONTACT YOUR PHYSICIAN AND YOU FEEL IT IS AN EMERGENCY, GO TO THE NEAREST EMERGENCY ROOM OR CALL 911 Home Treatment: Devices/Equipment: Special Services: Additional Instructions: Primary Care Physician to provide the following pending test results: None Follow up: With: Address: When: [facility] [place] [place] [address] Business (1) 10/23/2021 10:00 AM With: Address: When: JOSE PATEL [address] [place] [address] [place] [address] Business (1) 10/01/2021 11:30 AM In the event that this physician does not participate in your insurance network, please consult with your insurance company to find a nearby participating provider. Comment: IVIKTORIYA THERESA L, have received the attached patient education materials/instructions and have verbalized understanding: Patient Signature Date Clinican/Nurse Signature Date HERE ARE THE MEDICATION CHANGES THAT OCCURRED DURING YOUR HOSPITAL STAY New Medications Printed Prescriptions docusate (Colace 100 mg Cap) 1 Capsules By Mouth 2 times a day as needed for constipation. Refills:0. Last Dose: Next Dose: polyethylene glycol 3350 (MiraLax oral powder for reconstitution) 17 Gram By Mouth every day. dissolve in water before taking. Refills: 0. Last Dose: Next Dose: Medications to Continue with No Changes Other Medications cholecalciferol (Vitamin D3 1000 intl units oral capsule) 1 Capsules By Mouth every day. Last Dose: Next Dose: multivitamin (Multiple Vitamins Tab) 1 Tablets Chewed every day., gummy tab Last Dose: Next Dose: multivitamin with minerals (Viactiv Multi-Vitamin) 1 Tablets Chewed every day. Last Dose: Next Dose: Comment: MEDICATION LIST PROVIDED FOR YOU IS A LIST OF YOUR CURRENT MEDICATIONS. PLEASE CARRY THIS WITH YOU AT ALL TIMES. cholecalciferol (Vitamin D3 1000 intl units oral capsule) 1 Capsules By Mouth every day. docusate (Colace 100 mg Cap) 1 Capsules By Mouth 2 times a day as needed for constipation. Refills:0. multivitamin (Multiple Vitamins Tab) 1 Tablets Chewed every day. multivitamin with minerals (Viactiv Multi-Vitamin) 1 Tablets Chewed every day. polyethylene glycol 3350 (MiraLax oral powder for reconstitution) 17 Gram By Mouth every day. dissolve in water before taking. Refills: 0. [facility] Comment: PATIENT EDUCATION INFORMATION Instructions: Medication Leaflets: You may receive a survey from [employer] asking you to rate your care experience. Your feedback is important and will help us understand what we do well and how we can improve the quality of care we provide to you, your loved ones and our community. It?s an honor to serve you. Thank you for choosing [facility] HospitalInterdisciplinary Note - Case Manageron 09-26-2021 Interdisciplinary Note - Case ManagerPt is awake and alert in bed, previously rounded with DR. Warren. Pt is aware of plan to DC home today. Pt is from home with spouse and he will transport at DC. Observation status reviewed and EVANS form previously rounded with nursing. Declines any concerns or DC needs. . PCP verified and insurance information reviewed and DME discussed. Contact information provided and white board updated.[facility] Comment on above:Result Comment: Electronically Signed By: Rodger HIGGINS, Chaya\.lula\Date and Time Signed: 09/26/21 09:50 EDTMonitor Recordon 09-26-2021 Monitor [id number]#1.00CD:127NormalMercy Health – The Jewish HospitalMonitor Record [id number]:127NormSouthwest General Health CenterMonitor [id number]#1.00CD:127Normal [facility] HospitalAuto Diffon 05-39-1907Tgqihrgnw/100 WBC (Bld)0.5 % Normal0.0-2.0[facility] HospitalComment on above:Order Comment: Order Added by Discern Expert.Performed By: #### [id number], [id number], [id number], [id number], [id number], [id number], [id number] ####[facility] [address] [place], [place] [address]Iylcwhdlf/Leukocytes Auto (Bld) [Pure # fraction] 0.0 E9/LNormal0.0-0.2FGreene Memorial HospitalComment on above:Order Comment: Order Added by Discern Expert.Performed By: #### [id number], [id number], [id number], [id number], [id number], [id number], [id number] ####[facility] [address] [place], [place] [address]Lgcfaldehxo/100 WBC (Bld)2.1 %Normal 0.0-8.0[facility] HospitalComment on above:Order Comment: Order Added by Discern Expert.Performed By: #### [id number], [id number], [id number], [id number], [id number], [id number], [id number] ####[address] [address]Vlwmunmcydk/Leukocytes Auto (Bld) [Pure # fraction] 0.1 E9/LNormal0.0-0.5FGreene Memorial HospitalComment on above:Order Comment: Order Added by Discern Expert.Performed By: #### [id number], [id number], 27986754, [id number], [id number], 24080915, 7144987 ####[address] [address]Buarvmginwz/100 WBC (Bld)37.2 %Normal 14.0-50.0[facility] HospitalComment on above:Order Comment: Order Added by Discern Expert.Performed By: #### [id number], 3554717, 46122176, 7669614, [id number], 85642199, 1217929 ####[address] [address]Peuzffenjvc/Leukocytes Auto (Bld) [Pure # fraction] 2.5 E9/LNormal1.0-4.0[facility] HospitalComment on above:Order Comment: Order Added by Discern Expert.Performed By: #### [id number], 2830915, 97468971, 8112813, [id number], [id number], [id number] ####[address] [address]Oienkuoqr/100 WBC (Bld)9.8 %Normal 4.0-14.0[facility] HospitalComment on above:Order Comment: Order Added by Discern Expert.Performed By: #### [id number], 0853808, 06936496, 9166956, [id number], 60646802, 0589705 ####[address] [address]Mhszdmgbm/Leukocytes Auto (Bld) [Pure # fraction] 0.6 E9/LNormal0.2-1.0[facility] HospitalComment on above:Order Comment: Order Added by Discern Expert.Performed By: #### [id number], 2766413, [id number], 2671239, [id number], 21534875, [id number] ####[address] [address]Locusguyyah/100 WBC (Bld)50.4 %Normal 36.0-75.0[facility] HospitalComment on above:Order Comment: Order Added by Discern Expert.Performed By: #### [id number], 7835327, 35563443, 7722475, [id number], 29349779, 9492010 ####[address] [address]Kxmcknxafzg/Leukocytes Auto (Bld) [Pure # fraction] 3.3 E9/LNormal2.0-7.5FGreene Memorial HospitalComment on above:Order Comment: Order Added by Discern Expert.Performed By: #### [id number], [id number], 29379811, 7850605, [id number], 46021230, 5605705 ####[address] [address]YVZrs 00-01-2937Hvismzeuei [Mass/Vol] 1.0 mg/dLNormal0.5-1.3FGreene Memorial HospitalComment on above:Performed By: #### [id number], 9365802, 02866285, 9060592, 860353530, 09649918, 6658187 ####[facility] [address] [place], [place] [address]Zyyz nitrogen [Mass/Vol]20 mg/dLNormal5-21[facility] HospitalComment on above:Performed By: #### [id number], 1349288, 34572031, 5064333, 058539913, 39482295, 9771927 ####[facility] [address] [place], [place] [address]Seka nitrogen/Creatinine [Mass ratio]20 No NwlioJuzqel69-18 [facility] HospitalComment on above:Performed By: #### [id number], 5428318, 75337745, 7333421, 936054382, 10490126, 9565461 ####[address] [place], [place] [address]Nmzjl gap [Moles/Vol] 11 mmol/LNormal6-16[facility] HospitalComment on above:Performed By: #### 08139144, 1981988, 19461112, 4867423, 761998490, 58520163, 3159461 ####[facility] [address] [place] [address] Calcium [Mass/Vol]9.6 mg/dLNormal8.9-11.1FGreene Memorial HospitalComment on above:Performed By: #### 33506379, 3670800, 26620464, 2108235, 005759845, 83865899, 7064528 ####[facility] [address] [place], [place] [address]Zpdrbfvd [Moles/Vol]102 mmol/FQntuin242-831FbmozyMercy Health – The Jewish HospitalComment on above:Performed By: #### 28133298, 5680267, 76513096, 5262865, 269872262, 07587023, 1693279 ####[facility] [address] [place], [place] [address]BH8 [Moles/Vol]27 mmol/UZuuwbt34-85 [facility] HospitalComment on above:Performed By: #### 42980677, 7896292, 62523134, 2973806, 361211586, 25398868, 6488731 ####[facility] [address] [place], [place] [address]Vfwwvxq [Mass/Vol]98 mg/aAYewdkb04-213RkzlgtMercy Health – The Jewish HospitalComment on above:Result Comment: If this glucose result represents a fasting glucose, interpretation should refer to the following reference range: 55-99 mg/dLPerformed By: #### [id number], 3162132, 51750999, 7481988, 236352949, 37566106, 9397384 ####[facility] [address] [place], [place] [address]Alyriytqy [Moles/Vol]3.7 mmol/LNormal 3.5-5.3FGreene Memorial HospitalComment on above:Performed By: #### 50270791, 5151153, 11850477, 9483646, 249006553, 63792790, 1422615 ####[facility] [address] [place], [place] [address]Shbikh [Moles/Vol]136 mmol/WBiwoyg231-281KrlxheMercy Health – The Jewish HospitalComment on above:Performed By: #### 71445038, 3459255, 97890595, 5072444, 382158534, 90631363, 6983306 ####[facility] [address] [place], [place] [address]ZRL w/ Auto Diffon 69-97-0357Bfmonxxdwcm distribution width (RBC) [Ratio]13.9 % Hvebmc06.9-14.2FGreene Memorial HospitalComment on above:Performed By: #### 99832263, 3109705, 32109304, 0177367, 579964326, 17837961, 9452698 #### [facility] [address], [place] [address]Ruucxkakyw (Bld) [Volume fraction]41.1 %Yjdudz75.0-46.0[facility] HospitalComment on above:Performed By: #### 55903167, 4583694, 61393741, 2845681, 533093299, 44887481, 7340857 #### [facility] [address], [place] [address]Rbzdpxzdho (Bld) [Mass/Vol]14.1 g/xHEbizky76.0-16.0[facility] HospitalComment on above:Performed By: #### 07119896, 7832303, 18250627, 6435897, 045273972, 04789641, 1356552 #### [facility] [address], [place] [address]GJD (RBC) [Entitic mass]31.2 xgWyxweu50.0-34.0[facility] HospitalComment on above:Performed By: #### 02920862, 1845395, 10845528, 7761704, 411723793, 65812831, 0661452 #### [facility] [address], [place] [address]UKRY (RBC) [Mass/Vol]34.2 g/kGNnwdkp45.4-36.0[facility] HospitalComment on above:Performed By: #### 39384212, 5277234, 48221006, 6496612, 264875643, 16704642, 6074036 #### [facility] [address], [place] [address]NXI (RBC) [Entitic vol]91.1 sHDhidcf27.0-100.0[facility] HospitalComment on above:Performed By: #### 68139941, 9010269, 09033256, 9570045, 771070108, 11978755, 9683241 #### [facility] [address], [place] [address]Lbhiaqbe mean volume (Bld) [Entitic vol]8.7 fLNormal6.4-10.8 [facility] HospitalComment on above:Performed By: #### 73100165, 7829717, 26570852, 6344205, 513636770, 09421426, 5247189 #### [facility] [address], [place] [address]Ctyjftnug (Bld) [#/Vol]251.0 E9/OFnjflq948.0-500.0[facility] HospitalComment on above:Performed By: #### 28593641, 5168341, 55139098, 5326458, 867071587, 47146511, 1166256 #### [facility] [address], [place] [address]SKN (Bld) [#/Vol]4.5 E12/LNormal4.3-5.9[facility] HospitalComment on above:Performed By: #### 23561393, 5147887, 64338137, 6255329, 573132695, 36439930, 3204155 #### [facility] [address], [place] [address]OEW corrected for nucl RBC Auto (Bld) [#/Vol]6.6 E9/LNormal 4.0-11.0[facility] HospitalComment on above:Performed By: #### 68670357, 0258190, 32268554, 3072133, 576201021, 81456489, 7443866 #### [facility] [address], [place] [address]RABJUABWRSrzhxro By: SYSTEM SYSTEM on 94-88-5489Glkbavcm I.cardiac [Mass/Vol]5.80 pg/mLLow10.10 - 27.10 pg/mLFTMC RemisolTroponin I.cardiac [Mass/Vol]6.30 pg/mLLow10.10 - 27.10 pg/mLFTMC RemisolCholesterol [Mass/Vol]293 mg/oCTfcd347 - 200 mg/dLFTMC RemisolCholesterol in HDL [Mass/Vol] 64 mg/dLInvalid Interpretation CodeFTMC RemisolCholesterol in LDL [Mass/Vol]222 mg/dLHigh<=129mg/dLFT RemisolCholesterol in VLDL [Mass/Vol]19 mg/dLNormal7 - 40 mg/dLFT RemisolTriglyceride [Mass/Vol]94 mg/dLNormal<=149mg/dLDUNCAN REGION[facility] Remisol Troponin I.cardiac [Mass/Vol]5.10 pg/mLLow10.10 - 27.10 pg/mLDUNCAN REGIONAL [facility] RemisolAnion gap [Moles/Vol]11 mmol/LNormal6 - 16 mEq/LFTMC RemisolCalcium [Mass/Vol]9.6 mg/dLNormal8.9 - 11.1 mg/dLDUNCAN REGIONAL HOSP[facility] RemisolChloride [Moles/Vol]102 mmol/MTihpmg871 - 111 mmol/LFTMC RemisolCO2 [Moles/Vol]27 mmol/POfaguf58 - 31 mmol/LFTMC Remisol Creatinine [Mass/Vol]1.0 mg/dLNormal0.5 - 1.3 mg/dLDUNCAN REGIONAL HOSPITAL [facility] RemisolGFR/1.73 sq M.predicted among blacks MDRD (S/P/Bld) [Vol rate/Area]mL/min/1.73 z1Cjtodk >=59mL/min/1.73 m2D[facility] Chem SGFR/1.73 sq M.predicted among non-blacks MDRD (S/P/Bld) [Vol rate/Area]56 mL/min/1.73 m2Low>=59mL/min/1.73 m2[facility] Chem S Glucose [Mass/Vol]98 mg/xYQpgpts95 - 199 mg/dLDUNCAN REGIONAL [facility] RemisolPotassium [Moles/Vol] 3.7 mmol/LNormal3.5 - 5.3 mmol/LFTMC RemisolSodium [Moles/Vol]136 mmol/LNormal 135 - 145 mmol/LFTMC RemisolUrea nitrogen [Mass/Vol]20 mg/dLNormal5 - 21 mg/dL [facility] RemisolUrea nitrogen/Creatinine [Mass ratio]20 mg/tgWbtdfd71 - 20[facility] RemisolCHEMISTRYOrdered By: Ron Argueta on 33-34-3041CqX7k (Bld) [Mass fraction]5.6 %Normal<=5.9%[facility] ChemAutoSSCOAGULATIONOrdered By: Reji Whittaker on 00-32-5674oIUZ Coag (PPP) [Time]33.5 jTvxxap97.1 - 36.5 second(s)[facility] Auto CoagINR Coag (PPP) [Relative time]1.0 {INR}Invalid Interpretation CodeDUNCAN REGIONAL HOSPITAL [facility] Auto CoagPT Coag (PPP) [Time]11.7 wWahsaj78.2 - 12.9 second(s)[facility] Auto CoagCTA Abdomen and Pelvison 90-03-6318LDB Abdomen and PelvisExam Date/Time: 09/25/2021 05:38 EDT Reason for Exam: Renal artery dissection suspected;Other (please specify) Report PLEASE REFER TO THE CTA CHEST REPORT. All CT scans at this facility use dose modulation, iterative reconstruction, and/or weight based dosing when appropriate to reduce radiation dose to as low as reasonably achievable. FINAL REPORT Dictated: 09/25/2021 10:13 am Timo Soto M.D. Signed (Electronic Signature): 09/25/2021 10:13 am Signed by: Timo Soto M.D. Transcribed by: JULIA Technologist: PARI Technical Comments GFR (mL/min/1/73m2) 56 Contrast: Isovue 370 Contrast amount in ml's: 100NormalFisher Parkwood Hospital CenterCTA Cheston [id number] ChestExam Date/Time: 09/25/2021 05:39 EDT Reason for Exam: Chest pain or back pain, aortic dissection suspected;Other (please specify) Report IMPRESSION: NO CT EVIDENCE OF PULMONARY EMBOLISM. NO EVIDENCE OF ANEURYSM NOR DISSECTION OF THE THORACIC OR ABDOMINAL AORTA. NO EVIDENCE OF ACUTE PATHOLOGY OF THE CHEST, ABDOMEN, OR PELVIS. CLINICAL HISTORY: Chest pain or back pain, aortic dissection suspected. COMMENT: Axial images were obtained after the rapid injection of IV contrast with narrow collimation and reconstructed at a narrow interval. Coronal and sagittal reconstructions were performed. On the PACS, images were reviewed in cine display and using MIP postprocessing. The pulmonary arteries are contrast opacified and no intraluminal filling defects are noted. The thoracic aorta is normal in diameter, without evidence of aneurysm or dissection. The heart is upper limits of normal in size. No pericardial effusion is noted. There is no mediastinal nor hilar lymphadenopathy. No infiltration, no lung mass, no pneumothorax, nor pleural effusion is evident. There are limited calcifications of the distal abdominal aorta and of the common iliac arteries. The abdominal aorta is normal diameter and there is no evidence of aneurysm or dissection. The celiac artery, superior mesenteric artery, and inferior mesenteric artery and branches are contrast opacified and normal in appearance, without evidence of stenosis or occlusion. The right and left main renal arteries are normal. No significant stenoses are seen involving the iliac arteries bilaterally or the common femoral arteries. The liver, spleen, pancreas, gallbladder, adrenal glands, and kidneys are normal in appearance. The renal collecting systems are not dilated. No retroperitoneal lymphadenopathy is evident. Evaluation of bowel is limited. The bowel loops are not dilated, and there is no evidence of bowel obstruction. The appendix is normal. Fecal material in the colon limits evaluation. There is no evidence of diverticulitis. No abdominal inflammatory complex nor free air nor free fluid is noted. The uterus is not identified, and presumably the patient has had a prior hysterectomy. The urinary bladder is unremarkable. There is no pelvic mass nor pelvic lymphadenopathy. Visualized bony structures are unremarkable. All CT scans at this facility use dose modulation, iterative reconstruction, and/or weight based dosing when appropriate to reduce radiation dose to as low as reasonably Report achievable. FINAL REPORT Dictated: 09/25/2021 10:12 am Timo Soto M.D. Signed (Electronic Signature): 09/25/2021 10:12 am Signed by: Timo Soto M.D. Transcribed by: JULIA Technologist: PARI Technical Comments GFR (mL/min/1/73m2) 56 Contrast: Isovue 370 Contrast amount in ml's: 100NoTrumbull Regional Medical CenterConsent for Treatmenton [id number] for Treatment [id number]:127NoSt. Anthony's Hospital Clinical Summaryon [id number] Clinical Summary [id number] ED Clinical Summary Person Information Name: LUPE SADLERSA Benavidez Judith/[facility] Age: 66 Years : 1955 Sex: Female Language: Armenian PCP: JOSE PATEL DO Marital Status: Visit Id: Visit Reason: Chest pain; CHEST PAINS Speciality: Acuity: 3 Enc Type: Emergency Med Service: Emergency Arrival: 09/25/2021 04:37:58 Discharge: LOS: 000 03:59 Checkin: 09/25/2021 04:37:58 Checkout: 09/25/2021 08:36:49 Dispo Type: Admitted as IP to this [facility] EVENTS: Event Name Event Status Request Date/Time Start Date/Time Complete Date/Time Arrive Complete 09/25/2021 04:37:58 09/25/2021 04:37:58 09/25/2021 04:37:58 Document Home Meds Request 09/25/2021 04:37:58 Triage Complete 09/25/2021 04:37:58 09/25/2021 04:46:13 09/25/2021 04:46:13 EKG Complete 09/25/2021 04:41:28 09/25/2021 04:43:56 Dr Exam Complete 09/25/2021 04:42:22 09/25/2021 04:42:22 09/25/2021 04:42:22 Registration Complete 09/25/2021 04:42:22 09/25/2021 04:48:17 09/25/2021 06:47:56 Bed Assign Complete 09/25/2021 04:48:17 09/25/2021 04:48:17 09/25/2021 04:48:17 RN Exam Complete 09/25/2021 04:48:17 09/25/2021 04:54:18 09/25/2021 04:54:18 RN Exam Start 09/25/2021 04:54:52 09/25/2021 04:54:52 Meds Admin Complete 09/25/2021 04:55:41 09/25/2021 05:42:15 Pending Labs Request 09/25/2021 04:55:41 Lab Complete 09/25/2021 04:55:41 09/25/2021 05:21:14 Patient Care Request 09/25/2021 04:55:41 RT Request 09/25/2021 04:55:41 CT Complete 09/25/2021 04:55:41 09/25/2021 05:39:13 Pending Labs Complete 09/25/2021 05:11:28 09/25/2021 05:11:28 09/25/2021 05:21:15 Lab Complete 09/25/2021 05:11:28 09/25/2021 05:11:28 09/25/2021 05:21:15 Pending Labs Complete 09/25/2021 05:18:09 09/25/2021 05:18:09 09/25/2021 05:18:18 Lab Complete 09/25/2021 05:18:09 09/25/2021 05:18:09 09/25/2021 05:18:18 Pending Labs Complete 09/25/2021 06:11:45 09/25/2021 06:11:45 09/25/2021 06:11:45 Meds Admin Complete 09/25/2021 06:38:11 09/25/2021 06:41:22 Consult Request 09/25/2021 06:40:29 Hospitalist Consult Request 09/25/2021 06:40:29 Reg Complete Request 09/25/2021 06:47:56 Reg Bed Request Complete 09/25/2021 06:47:56 09/25/2021 06:47:56 09/25/2021 06:47:56 Patient Care Request 09/25/2021 07:31:55 Meds Admin Request 09/25/2021 07:31:55 RT Request 09/25/2021 07:31:55 Bed Request Request 09/25/2021 07:31:55 Reg Bed Request Request 09/25/2021 07:31:55 Admit Request 09/25/2021 07:31:55 Pending Labs Request 09/25/2021 07:31:55 Lab Request 09/25/2021 07:31:55 Pending Labs Inlab 09/25/2021 07:34:49 09/25/2021 07:34:49 Pending Labs Complete 09/25/2021 08:01:19 09/25/2021 08:01:19 09/25/2021 08:28:36 Lab Complete 09/25/2021 08:01:19 09/25/2021 08:01:19 09/25/2021 08:28:36 Inpatient Bed Ready Complete 09/25/2021 08:36:49 09/25/2021 08:36:49 09/25/2021 08:36:49 ADDRESS: [address] [place] [address] [facility] [phone] PHYS DOC NOTES: MEDICAL INFORMATION: Prescriptions Given: PATIENT EDUCATION INFORMATION: Instructions: Follow up: DIAGNOSIS: 1:Chest pain; 2:HLD (hyperlipidemia); 3:GERD (gastroesophageal reflux disease); 4:DVT prophylaxis; ST segment depressionNormalFisher Broome Medical CenterED Note-Physicianon [id number] Note-PhysicianBasic Information Time Seen: Bogdan Bettencourt DO 09/25/2021 04:42 Chief Complaint Pt arrives to ed with c/o chest pain that woke her up at 0400 am. History of Present Illness Patient is a 66-year-old female no past medical history presenting to the ED for evaluation of chest pain. Patient states she woke up around 3:30- 0400 AM with severe chest pain with radiation to herback and her arms bilaterally. Patient states the pain is now localizing more in her chest, denies any recent illness, fevers, chills, nausea, vomiting, dizziness or lightheadedness. Has never had a cardiac hip done in the past. Does have a strong family history of coronary artery disease with multiple family members in their 60s from CAD Review of Systems General: Denied fever, chills, weight loss HEENT: Denied Congestion, rhinorrhea, sore throat Cardiac: Denied palpitations, dizziness/lightheadedness, + chest pain Respiratory: Denied Dyspnea, cough Abdominal: Denied abdominal pain, nausea, vomiting, diarrhea, constipation : Denied dysuria, hematuria Extremities: Denied leg swelling, leg pain, calf tenderness Neuro: Denied Focal neurologic deficits, vision changes, difficulty with speech Integumentary: Denied rashes or lesions Physical Exam Vitals & Measurements T: 36.4 ?C(Oral) RR: 16 BP: 144/89 SpO2: 97% HT: 165.10 cm HT: 165.1 cm WT: 62.3 kg WT: 62.3 kg BMI: 22.86 General: Well developed, non toxic appearing, no acute distress HEENT: Head atraumatic, Mucosa moist, hearing grossly normal Neck: No JVD, tracheal deviation Cardiac: Regular rate, rhythm, no murmurs, or gallops, 2+ radial pulses Respiratory: Lungs clear to auscultation B/L, normal respiratory effort Abdomen: Soft non tender, no rebound or guarding, no peritoneal signs Extremities: No edema noted in the LE B/L, no tenderness to palpation Neurologic: Alert and oriented, speech clear Skin: No rashes or lesions Psych: Appropriate mood and behavior Medical Decision Making Patient is a 66-year-old female presenting to the ED for evaluation of chest pain. Patient is nontoxic-appearing on arrival, no acute distress. Due to the description of the pain was a sharp pain going from the chest to the back CT is obtained to evaluate for underlying dissection. Cardiac work-up is also ordered. EKG shows lateral ST depressions no ST elevations, isolated PVC. Patient's laboratory evaluation is unremarkable, CT does not show any evidence of dissection or pulmonary embolism. Patient is given 162 mg of aspirin. On reevaluation for pain has resolved. Due to patient's significant family history of multiple family members dying of cardiac disease in their 60s patient is admitted to the hospitalist for further work-up. Assessment/Plan Chest pain (R07.9: Chest pain, unspecified) ST segment depression (R94.31: Abnormal electrocardiogram [ECG] [EKG]) Orders: aspirin, 162 mg = 2 tab(s), Tab-Chew, Oral, Once, Stop date 09/25/21 6:38:00 EDT, STAT, Start date 09/25/21 6:38:00 EDT, 09/25/21 6:38:00 EDT Sodium Chloride 0.9% intravenous solution, Soln-IV, Misc, Once, Stop date 09/25/21 5:36:30 EDT, Physician Stop, 09/25/21 5:36:30 EDT Sodium Chloride 0.9% intravenous solution, 1,000 mL, Soln-IV, IV, Once, Stop date 09/25/21 4:55:00 EDT, STAT, Start date 09/25/21 4:55:00 EDT, Infuse over 61, minute(s) Sodium Chloride 0.9% intravenous solution, Soln-IV, Misc, Once, Stop date 09/25/21 4:59:42 EDT, Physician Stop, 09/25/21 4:59:42 EDT Automated Diff Basic Metabolic Panel CBC w/ Auto Diff CTA Abdomen and Pelvis CTA Chest ECG 12 Lead Adult ED Cardiac Monitoring eGFR Extra SST Tube Oxygen Saturation Oxygen Therapy PT & PTT Saline Lock Insert Troponin 0 Hr. Troponin 3 Hr. Troponin 6 Hr. Medications Administered Given NS 1000 ml Bolus, 1000 mL, IV Disposition Plan Patient Discharge Condition Fair Discharge Disposition Admitted Discharge Prescription List Prescriptions No active prescription medications Follow-up No qualifying data available Problem List/Past Medical History Ongoing No qualifying data Historical No qualifying data Medications Inpatient NS 1000 ml Bolus, 1000 mL, IV, Once Home No active home medications Allergies codeine (Vomit) Social History Alcohol Substance Abuse Tobacco Lab Results WBC: 6.6 E9/L (09/25/21 04:48:00) RBC: 4.5 E12/L (09/25/21 04:48:00) HGB: 14.1 gm/dL (09/25/21 04:48:00) Hct: 41.1 % (09/25/21 04:48:00) MCV: 91.1 fL (09/25/21 04:48:00) MCH: 31.2 pg (09/25/21 04:48:00) MCHC: 34.2 gm/dL (09/25/21 04:48:00) RDW: 13.9 % (09/25/21 04:48:00) Platelet: 251 E9/L (09/25/21 04:48:00) MPV: 8.7 fL (09/25/21 04:48:00) Neutro Auto: 50.4 % (09/25/21 04:48:00) Lymph Auto: 37.2 % (09/25/21 04:48:00) [place] Auto: 9.8 % (09/25/21 04:48:00) Eos Auto: 2.1 % (09/25/21 04:48:00) Basophil Auto: 0.5 % (09/25/21 04:48:00) Neutro Absolute: 3.3 E9/L (09/25/21 04:48:00) Lymph Absolute: 2.5 E9/L (09/25/21 (more content not included)...[facility] HospitalComment on above:Result Comment: Electronically Signed By: Bogdan Bettencourt DO\.br\Date and Time Signed: 09/25/21 06:39 EDTED Patient Education Noteon [id number] Patient Education NoteNormRegency Hospital [facility] Patient Summaryon [id number] Patient Summary [place] [id number] Patient Discharge Instructions Person Information Name: MINDI SADLER Age: 66 Years Arrival Date: 09/25/2021 04:37:58 Discharge Diagnosis: 1:Chest pain; 2:HLD (hyperlipidemia); 3:GERD (gastroesophageal reflux disease); 4:DVT prophylaxis; ST segment depression Primary Care Physician: JOSE PATEL DO Provider Information Primary Provider: Bogdan Bettencourt DO [employer] Prospecting:None The exam and treatment you received in the Emergency Department were for an urgent problem and are not intended as complete care. It is important that you follow up with a doctor, nurse practitioner,or physician?s expanded duty dental assistant for ongoing care. If your symptoms become worse or you do not improve as expected and you are unable to reach your usual health care provider, you should return to the Emergency Department. We are available 24 hours a day. MINDI SADLER has been given the following list of patient education materials, prescriptions and follow-up instructions: Follow-up Instructions: In the event that this physician does not participate in your insurance network, please consult with your insurance company to find a nearby participating provider. Patient Education Materials: A MESSAGE TO ALL PATIENTS REGARDING OPIOIDS PRESCRIPTION OPIOIDS: WHAT YOU NEED TO KNOW Prescription opioids can be used to help relieve ydpdqtyl-nd-elmsfi pain and are often prescribed following a surgery or injury, or for certain health conditions. These medications can be an important part of the treatment but also come with serious risks. It is important to work with your healthcare provider to make sure you are getting the safest, most effective care. WHAT ARE THE RISKS AND SIDE EFFECTS OF OPIOID USE? Prescription opioids carry serious risks of addiction and overdose, especially with prolonged use. An opioid overdose, often marked by slowed breathing, can cause sudden . The use of prescription opioids can have a number of side effects as well, even when taken as directed: ? Tolerance?meaning you might need to take more of the medication for the same pain relief ? Physical dependence?meaning you have symptoms of withdrawal when a medication is stopped ? Increased sensitivity to pain ? Constipation ? Nausea, vomiting, and dry mouth ? Sleepiness and dizziness ? Confusion ? Depression ? Low levels of testosterone that can result in lower sex drive, energy, and strength ? Itching and sweating RISKS ARE GREATER WITH: ? History of drug misuse, substance use disorder, or overdose ? Mental health conditions (such as depression or anxiety) ? Sleep apnea ? Older age (65 years and older) ? Avoid alcohol while taking prescription opioids. Also, unless specifically advised by your health care provider, medications to avoid include: ? Benzodiazepines (such as Xanax or Valium) ? Muscle relaxants (such as Soma or Flexeril) ? Hypnotics (such as Ambien or Lunesta) ? Other prescription opioids KNOW YOUR OPTIONS Talk to your health care provider about ways to manage your pain that don?t involve prescription opioids. Some of these options may actually work better and have fewer risks and side effects. Optionsmay include: ? Pain relievers such as acetaminophen, ibuprofen, and naproxen ? Some medication that are also used for depression or seizures ? Physical therapy and exercise ? Cognitive behavioral therapy, a psychological, goal-directed approach, in which patients learn how to modify physical, behavioral, and emotional triggers of pain and stress. IF YOU ARE PRESCRIBED OPIOIDS FOR PAIN: ? Never take opioids in greater amounts or more often than prescribed. ? Follow up with your primary health care provider. o Work together to create a plan on how to manage your pain. o Talk about ways to help manage your pain that don?t involve prescription opioids. o Talk about any and all concerns and side effects. ? Help prevent misuse and abuse o Never sell or share prescription opioids. o Never use another person?s prescription opioids. ? Store prescription opioids in a secure place and out of reach of others (this may include visitors, children, friends, and family). ? Safely dispose of unused prescription opioids: Find your community drug take- back program or your[employer] mail-back program, or flush them down the toilet, following guidance from the Food and Drug Administration (www.fda.gov/Drugs/ResourcesForYou). ? Visit www.cdc.gov/drugoverdose to learn about the risks of opioids abuse and overdose. ? If you believe you may be struggling with addiction, tell your health career center advisor and ask for guidance or call [facility]?S National Helpline at 7-608-134-HELP. v Source: US Department of Health and Human Services/Center for Disease Control & Preven (more content not included)...[facility] HEMATOLOGYOrdered By: SYSTEM SYSTEM on 28-38-2705Vbpyaugun/100 WBC (Bld)0.5 % Normal0.0 - 2.0 %[facility] HemeAutoSSBasophils/Leukocytes Auto (Bld) [Pure # fraction]0.0 E9/LNormal0.0 - 0.2 E9/LFTMC HemeAutoSSEosinophils/100 WBC (Bld)2.1 %Normal0.0 - 8.0 %[facility] HemeAutoSSEosinophils/Leukocytes Auto (Bld) [Pure # fraction]0.1 E9/LNormal0.0 - 0.5 E9/LFTMC HemeAutoSSLymphocytes/100 WBC (Bld) 37.2 %Odouqd91.0 - 50.0 %[facility] HemeAutoSSLymphocytes/Leukocytes Auto (Bld) [Pure # fraction]2.5 E9/LNormal1.0 - 4.0 E9/LFT[facility] HemeAutoSSMonocytes/100 WBC (Bld)9.8 %Normal4.0 - 14.0 %[facility] HemeAutoSSMonocytes/Leukocytes Auto (Bld) [Pure # fraction]0.6 E9/LNormal0.2 - 1.0 E9/LFTMC HemeAutoSSNeutrophils/100 WBC (Bld) 50.4 %Mnhyhm64.0 - 75.0 %[facility] HemeAutoSSNeutrophils/Leukocytes Auto (Bld) [Pure # fraction]3.3 E9/LNormal2.0 - 7.5 E9/L[facility] HemeAutoSSHEMATOLOGYOrdered By: Reji Whittaker on 73-46-9263Kfhwxveivbk distribution width (RBC) [Ratio]13.9 % Wmbjeh37.9 - 14.2 %[facility] HemeAutoSSHematocrit (Bld) [Volume fraction]41.1 %Normal 34.0 - 46.0 %[facility] HemeAutoSSHemoglobin (Bld) [Mass/Vol]14.1 g/lAFehyrq80.0 - 16.0 gm/dLFTMC HemeAutoSSMCH (RBC) [Entitic mass]31.2 dfKebovs15.0 - 34.0 pgFTMC HemeAutoSSMCHC (RBC) [Mass/Vol]34.2 g/hZAfcdia13.4 - 36.0 gm/dLFTMC HemeAutoSS MCV (RBC) [Entitic vol]91.1 aULuazbj33.0 - 100.0 fLFTMC HemeAutoSSPlatelet mean volume (Bld) [Entitic vol]8.7 fLNormal6.4 - 10.8 fLFTMC HemeAutoSSPlatelets (Bld) [#/Vol]251.0 E9/QVwmnfz403.0 - 500.0 E9/LFT[facility] HemeAutoSSRBC (Bld) [#/Vol] 4.5 E12/LNormal4.3 - 5.9 E12/LFC HemeAutoSSWBC corrected for nucl RBC Auto (Bld) [#/Vol]6.6 E9/LNormal4.0 - 11.0 E9/LFC AyduTtreTGAizR1wyk 09-25-2021 HbA1c (Bld) [Mass fraction]5.6 %Normal<=5.9[facility] HospitalComment on above:Performed By: #### [id number], [id number], [id number], 2499334, [id number], [id number], [id number] ####[facility] [address] [place], [place] [address]Ytpjrwwegkrnssfcx Note - Case Manageron 09-25-2021 Interdisciplinary Note - Case ManagerPt is asleep in bed, previously rounded with Dr. Zach mims admit from ED this morning . PCP verified and insurance information reviewed and DME discussed. Contact information provided and white board updated. PT is from home with spouse and he will transport at DC. Observation status reviewed and MOONform to be reviewed per nursing. Pt is independent at home with all activities at home, declines any concerns or DC needs.NormalFisher Broome Medical CenterComment on above:Result Comment: Electronically Signed By: Rodger HIGGINS, Chaya\.lula\Date and Time Signed: 09/25/21 10:04 EDTInterdisciplinary Note - Social Workeron [id number] Note - Social WorkerSystem generated consult for advanced directives received. The patient reports that she has only completed a Last Will but no HCPOA or LW. This SW explains the differences and answers the patients questions. The patient requested that this SW leave the packet so that she may go over it with her spou se. The patient understands that this SW will remain available if she has any further questions or would like to complete them prior to discharge.[facility] HospitalLipid Panelon 28-10-0345Njamlhfrdgq [Mass/Vol]293 mg/dLHigh 120-200[facility] HospitalComment on above:Performed By: #### [id number], [id number] ####[facility] [address]Nor[place], [place] [address]Rvjynmtlfps in HDL [Mass/Vol]64 mg/dLInvalid Interpretation CodeMercy Health – The Jewish HospitalComment on above:Result Comment: HDL > or equal to 60 mg/dL: Low cardiovascular risk HDL < 40 mg/dL : High cardiovascular riskPerformed By: #### [id number], [id number] ####[facility] [address] [place] [address] Cholesterol in LDL [Mass/Vol]222 mg/dLHigh<=129[facility] Comment on above:Performed By: #### [id number], [id number] ####[facility] [address]Norwalk, [place] [address]Abnjfutafdz in VLDL [Mass/Vol] 19 mg/dLNormal7-40[facility] HospitalComment on above:Performed By: #### [id number], [id number] ####[facility] [address]Norwalk, [place] [address]Jkdlpljuzjny [Mass/Vol]94 mg/dLNormal<=149[facility] HospitalComment on above:Performed By: #### [id number], [id number] ####[facility] [address] [place], [place] [address]Ocbswxw from Medicareon 62-13-3469Ooqtyuc from Medicare [id number]#1.00CD:127[facility] HospitalMonitor Recordon 83-51-4633Btdqiww Record [id number]#1.00CD:127[facility] Healthcareitor [id number]#1.00CD:[address] [place], [place] [address]itor Record [id number]#1.00CD:[address] [place], [place] [address]itor [id number]#1.00CD:[address] [place], [place] [address]PT & PTTon 15-64-8117oACS Coag (PPP) [Time]33.5 second(s)Rzbucv11.1-36.5FGreene Memorial HospitalComment on above:Result Comment: Heparin therapeutic range (represented by Anti-Factor Xa activity of 0.2 - 0.4 U/mL) corresponds to PTT of 56.6 - 109.0 sec.Performed By: #### [id number], 5378032, 81635182, 7495709, 597307445, 53889623, 0570223 ####[facility] [address] [place], [place] [address]HMU Coag (PPP) [Relative time]1.0 {INR}Invalid Interpretation [facility] Comment on above:Result Comment: INR results are specifically intended to assess patients stabilized on long-term Anticoagulation therapy suggested INR?s ?Less Intensive Anticoagulation? 2.0 ? 3.0 Conventional Range 3.0 ? 4.5Performed By: #### [id number], 5249481, 92542735, 0127243, 051878455, 04673540, 7076464 ####[facility] [address] [place], [place] [address]CX Coag (PPP) [Time]11.7 second(s) Tuyhft46.2-12.9[facility] HospitalComment on above:Performed By: #### [id number], 4496631, 00329840, 5776041, 823535608, 59034447, 0789010 ####[address] [place], [place] [address]VAP - Preliminary Cat Scan Reporton 59-42-7365DYN - Preliminary Cat Scan Report [id number]#1.00CD:127NormalMercy Health – The Jewish HospitalTroponinon 69-23-2082Pfxwwdlm I.cardiac [Mass/Vol]5.80 pg/mLLow10.10-27.10 [facility] HospitalComment on above:Result Comment: The 95% CI (Confidence Interval) PPV (Positive Predictive Value) for myocardial infarction in females is 38 pg/mL, in males 51 pg/mL. The results should be used in conjunction with clinical conditions of myocardial infarction. (ScanScout High Sensitivity Troponin I Instructions For Use, [employer], January 2018)Performed By: #### [id number] #### [facility] [address] [place], [place] [address]Ofrbamlx 0 Hr.on 55-63-6043Wlaqidlu I.cardiac [Mass/Vol]5.80 pg/mLLow10.10-27.10[facility] HospitalComment on above:Result Comment: The 95% CI (Confidence Interval) PPV (Positive Predictive Value) for myocardial infarction in females is 38 pg/mL, in males 51 pg/mL. The results should be used in conjunction with clinical conditions of myocardial infarction. (ScanScout High Sensitivity Troponin I Instructions For Use, [employer], January 2018)Performed By: #### [id number], 9335613, 99105231, 0192473, 528081309, 85380435, 7156231 ####[facility] [address] [place], [place] [address]Bhykwkmu 3 Hr.on 23-08-0874Jcvtixrv I.cardiac [Mass/Vol]5.10 pg/mLLow10.10-27.10[facility] HospitalComment on above:Result Comment: The 95% CI (Confidence Interval) PPV (Positive Predictive Value) for myocardial infarction in females is 38 pg/mL, in males 51 pg/mL. The results should be used in conjunction with clinical conditions of myocardial infarction. (Access High Sensitivity Troponin I Instructions For Use, [employer], January 2018)Performed By: #### [id number], [id number] ####[facility] [address] [place], [place] [address]Enecvugq 6 Hr.on 55-48-6782Objkxwvk I.cardiac [Mass/Vol]6.30 pg/mLLow10.10-27.10[facility] HospitalComment on above:Result Comment: The 95% CI (Confidence Interval) PPV (Positive Predictive Value) for myocardial infarction in females is 38 pg/mL, in males 51 pg/mL. The results should be used in conjunction with clinical conditions of myocardial infarction. (Access High Sensitivity Troponin I Instructions For Use, [employer], January 2018)Performed By: #### [id number] ####[facility] [address] [place], [place] [address]fWJQfc 78-40-8902ADB/1.73 sq M.predicted among blacks MDRD (S/P/Bld) [Vol rate/Area]mL/min/{1.73_m2}Normal >=59[facility] HospitalComment on above:Order Comment: Order added by Discern Expert.Result Comment: eGFR is race adjusted. AA=. Performed By: #### [id number], 9930017, 72144862, 2205101, 043059290, 83729012, 8160244 ####[facility] [address] [place], [place] [address]LXT/1.73 sq M.predicted among non-blacks MDRD (S/P/Bld) [Vol rate/Area]56 mL/min/1.73 m2Low>=59[facility] HospitalComment on above:Order Comment: Order added by Discern Expert.Result Comment: Chronic kidney disease could be indicated at eGFR's of less than 60 mL/min/1.73m2. Kidney failure is indicated at less than 15 mL/min/1.73m2.Performed By: #### [id number], 0905314, 23166624, 8470542, 426917692, 89072531, 7811998 ####[facility] [address] [place], [place] [address]DRF - LIPID PROFILEon 15-34-3444AEOP- HDL RATIO NORMSEE Memorial Health SystemComment on above:Result Comment: 3.3 - 4.4 LOW RISK 4.4 - 7.1 AVERAGE RISK 7.1 - 11.0 MODERATE RISK >11.0 HIGH RISKPerformed By: #### DATLIPI #### [facility] [address] [address] [address] Es ParisCholesterol [Mass/Vol]254 mg/dLCritically high<=200The [facility] HospitalComment on above:Performed By: #### DATLIPI #### [facility] [address] [address] [address] Es ParisCholesterol in HDL [Mass/Vol]63 mg/dLSt. Elizabeth Hospital Comment on above:Performed By: #### DATLIPI #### [facility] [address] [address] [address] Es ParisCholesterol in LDL [Mass/Vol]172.2 mg/dLSt. Elizabeth HospitalComment on above:Performed By: #### DATLIPI #### [facility] [address] [address] [address] Es Holcomb.total/Cholesterol in HDL [Mass ratio]4.0 {ratio} NormalZanesville City HospitalCommunson healthcare cadillac hospital on above:Performed By: #### DATLIPI #### [facility] [address] [address] [address] Es Burciaga NORMAL> or = 60 mg/dl - LOW CARDIOVASCULAR RISK <40 mg/dl - HIGH CARDIOVASCULAR RISKNoNorwalk Memorial HospitalComment on above:Performed By: #### DATLIPI #### [facility] [address] [address] [address] Es Blunt CALC NORMALSEE BELOWSt. Elizabeth HospitalComment on above:Result Comment: <100 mg/dl OPTIMAL 100 - 129 mg/dl NEAR OR ABOVE OPTIMAL 130 - 159 mg/dl BORDERLINE HIGH 160 - 189 mg/dl HIGH >190 mg/dl VERY HIGH Performed By: #### DATLIPI #### [facility] [address] [address] [address] Es ParisTriglyceride [Mass/Vol]94 mg/dLNormal<=150[facility] Comment on above:Performed By: #### DATLIPI #### [facility] [address] [address] [address] Es PinedaLDL CALC18.8 mg/dLSt. Elizabeth HospitalComment on above: Performed By: #### DATLIPI #### [facility] [address] [place] [address] Dr. Es ParisMAM DIGITAL SCREEN W OR WO CAD BILATERALon 28-14-5488JQU DIGITAL SCREEN W OR WO CAD BILATERALHISTORY: Screening. Prior bilateral benign breast biopsies. TECHNIQUE: Bilateral digital screening mammogram with CAD. FINDINGS: Two views of each breast plus exaggerated CC lateral views of each breast, show heterogeneously dense fibroglandular tissue, which may obscure small masses. No change from prior studies most recent of 02/18/2019. Suspicious calcifications: None. Suspicious mass: None. Benign calcifications: Stereo clip and punctate calcifications from a prior biopsy inferior right breast unchanged. (If skin markers were applied, circles represent skin lesions and linear markers represent scars.) IMPRESSION: BI-RADS 2 - Benign, no evidence of malignancy. Normal interval followup is recommended in 12 months. OVERALL ASSESSMENT- BENIGN A letter of notification will be sent to the patient regarding the results. Interpreted by: Александр Perkins Jr., MD Signed by: Александр Perkins Jr., MD 02/24/20 Final resultNormalMetrohealth Main Campus Medical CenterBI-RADS 2 - Benign, no evidence of malignancy. Normal interval followup is recommended in 12 months. OVERALL ASSESSMENT- BENIGN A letter of notification will be sent to the patient regarding the results.[facility] HospitalTAMMIEHISTORY: Screening. Prior bilateral benign breast biopsies. TECHNIQUE: Bilateral digital screening mammogram with CAD. FINDINGS: Two views of each breast plus exaggerated CC lateral views of each breast, show heterogeneously dense fibroglandular tissue, which may obscure small masses. No change from prior studies most recent of 02/18/2019. Suspicious calcifications: None. Suspicious mass: None. Benign calcifications: Stereo clip and punctate calcifications from a prior biopsy inferior right breast unchanged. (If skin markers were applied, circles represent skin lesions and linear markers represent scars.)[facility] Anderson HospitalTAMMIEMarleni Gonzalez Incoming Radiant Results From [employer] - 02/24/2020 8:31 AM EDT HISTORY: Screening. Prior bilateral benign breast biopsies. TECHNIQUE: Bilateral digital screening mammogram with CAD. FINDINGS: Two views of each breast plus exaggerated CC lateral views of each breast, show heterogeneously dense fibroglandular tissue, which may obscure small masses. No change from prior studies most recent of 02/18/2019. Suspicious calcifications: None. Suspicious mass: None. Benign calcifications: Stereo clip and punctate calcifications from a prior biopsy inferior right breast unchanged. (If skin markers were applied, circles represent skin lesions and linear markers represent scars.) IMPRESSION: BI-RADS 2 - Benign, no evidence of malignancy. Normal interval followup is recommended in 12 months. OVERALL ASSESSMENT- BENIGN A letter of notification will be sent to the patient regarding the results. [facility] TAMMIESugarloaf 03-00-2585BKT [Catalytic activity/Vol]14 U/LNormal5-33 [facility] Medical CenterComment on above:Performed By: #### ZFAST, CDP, BMP, TSH, ALB, ALP, ALT, AST, TBIL, TP #### [facility] [address] [place] [address] Rigging Foreman: Gareth Downey MD #### LIPR #### [facility] [employer] [address] [place] [address] Rigging Foreman: CHRISTA Johnson [Catalytic activity/Vol]14 U/L5 - 33 U/L [facility] 11-79-3720RQM [Catalytic activity/Vol]14 U/LNormal<32 [facility] Medical CenterComment on above:Performed By: #### ZFAST, CDP, BMP, TSH, ALB, ALP, ALT, AST, TBIL, TP #### [facility] [address] [place], [place] [id number] Rigging Foreman: Gareth Downey MD #### LIPR #### [facility] [employer] [address] [place] [address] [phone] Rigging Foreman: Leoncio Larose MDAST [Catalytic activity/Vol]14 U/L<32[facility], KYAlbuminon 61-72-7285Vhkiqyq [Mass/Vol]5.1 g/dLNormal3.5-5.2MKeenan Private HospitalComment on above:Performed By: #### ZFAST, CDP, BMP, TSH, ALB, ALP, ALT, AST, TBIL, TP #### [facility] [phone] Rigging Foreman: Gareth Downey MD #### LIPR #### [address] [phone] Rigging Foreman: Arminda Johnsonbumin [Mass/Vol]5.1 g/dL3.5 - 5.2 g/dLBellevue, KYAlkaline Phoson 74-36-8770Mjvnftre Phos75 U/XYejlgq83-423DoatrMetrohealth Main Campus Medical CenterCommunson healthcare cadillac hospital on above:Performed By: #### ZFAST, CDP, BMP, TSH, ALB, ALP, ALT, AST, TBIL, TP #### [facility] [address] [place] [address] Rigging Foreman: Gareth Downey MD #### LIPR #### [facility] [employer] [address] [place] [address] [phone] Rigging Foreman: Arminda Johnsonkaline Phosphataseon 86-23-7432LHF [Catalytic activity/Vol]75 U/L35 - 104 U/LMNorwalk Memorial Hospital, [facility] Metabolic Panelon 16-58-8997Nryij gap [Moles/Vol]12 mmol/L9 - 17 mmol/LMNorwalk Memorial Hospital, KYBun/Cre Qxfns02ZqfywMercy Health Anderson Hospital, KYCalcium [Mass/Vol]9.7 mg/dL8.6 - 10.4 mg/dLMercy Health Anderson Hospital, KYChloride [Moles/Vol]101 mmol/L98 - 107 mmol/[facility], [place] CO2 [Moles/Vol]26 mmol/L20 - 31 mmol/[facility], KYCreatinine [Mass/Vol]1 mg/dLHigh0.5 - 0.9 mg/dLMercy Health Anderson Hospital, KYGFR >60>60 mL/min [facility], KYGFR Non- Bsirvsao95 mL/minLow>60[facility], [place] GFR/1.73 sq M predicted among non-blacks MDRD (S/P/Bld) [Vol rate/Area]NOT REPORTEDMercy Health Anderson Hospital, KYGFR/1.73 sq M predicted among non-blacks MDRD (S/P/Bld) [Vol rate/Area][facility], KYComment on above:Average GFR for 60-69 years old: 85 mL/min/1.73sq m Chronic Kidney Disease: <60 mL/min/1.73sq m Kidney failure: <15 mL/min/1.73sq m eGFR calculated using average adult body mass. Additional eGFR calculator available at: http://www.[employer]/multiple_crcl_2011.htm Glucose [Mass/Vol]105 mg/wTKyng53 - 99 mg/dLMercy Health Anderson Hospital, KYInterpretation and review of laboratory resultsAbnormalMercy Health Anderson Hospital, KYPotassium [Moles/Vol]4.3 mmol/L3.7 - 5.3 mmol/[facility], KYSodium [Moles/Vol]139 mmol/L135 - 144 mmol/[facility], KYUrea nitrogen [Mass/Vol]18 mg/dL8 - 23 mg/dLMercy Health Anderson Hospital, KYBamuhlenberg community hospital Metabolic Profon 07-17-2020(cont.)NormalMercy Carrollton HospitalComment on above:Result Comment: Average GFR for 60-69 years old: 85 mL/min/1.73sq m Chronic Kidney Disease: <60 mL/min/1.73sq m Kidney failure: <15 mL/min/1.73sq m eGFR calculated using average adult body mass. Additional eGFR calculator available at: http://www.[employer]/multiple_crcl_2012.htmPerformed By: #### ZFAST, CDP, BMP, TSH, ALB, ALP, ALT, AST, TBIL, TP #### [facility] [address] [place] [address] Rigging Foreman: Gareth Downey MD #### LIPR #### [address] [address] Rigging Foreman: Leoncio Larose MDAnion gap [Moles/Vol]12 mmol/LNormal9-17[facility] Medical CenterComment on above:Performed By: #### ZFAST, CDP, BMP, TSH, ALB, ALP, ALT, AST, TBIL, TP #### [facility] [address] [place] [address] Rigging Foreman: Gareth Downey MD #### LIPR #### [address] [phone] Rigging Foreman: Leoncio Larose MDBUN/CRE Rhrbk82Awdydj1-55Bvzmu [facility] Comment on above:Performed By: #### ZFAST, CDP, BMP, TSH, ALB, ALP, ALT, AST, TBIL, TP #### [facility] [address] [place] [address] Rigging Foreman: Gareth Downey MD #### LIPR #### [address] [phone] Rigging Foreman: ARCHIE Johnsonalcium [Mass/Vol]9.7 mg/dLNormal8.6-10.4[facility] on above:Performed By: #### ZFAST, CDP, BMP, TSH, ALB, ALP, ALT, AST, TBIL, TP #### [facility] [address] [place], [place] [phone] Rigging Foreman: Gareth Downey MD #### LIPR #### [address] [phone] Rigging Foreman: ARCHIE Johnsonhloride [Moles/Vol]101 mmol/KNxsnub75-402CtuxgMetrohealth Main Campus Medical CenterCommunson healthcare cadillac hospital on above:Performed By: #### ZFAST, CDP, BMP, TSH, ALB, ALP, ALT, AST, TBIL, TP #### [facility] [address] [place] [address] Rigging Foreman: Gareth Downey MD #### LIPR #### [phone] Rigging Foreman: ARCHIE JohnsonO2 [Moles/Vol]26 mmol/RZbtkej56-86YwhbgACMC Healthcare System Glen[facility]igh on above:Performed By: #### ZFAST, CDP, BMP, TSH, ALB, ALP, ALT, AST, TBIL, TP #### [facility] [address] [phone] Rigging Foreman: Gareth Downey MD #### LIPR #### [address] [phone] Rigging Foreman: ARCHIE Johnsonreatinine [Mass/Vol]1.00 mg/dLHigh0.50-0.90 [facility] on above:Performed By: #### ZFAST, CDP, BMP, TSH, ALB, ALP, ALT, AST, TBIL, TP #### [facility] [address] [phone] Rigging Foreman: Gareth Downey MD #### LIPR #### [address] [phone] Rigging Foreman: Leoncio Larose MDGFR, Amer>60Normal>60[facility] Medical CenterCommunson healthcare cadillac hospital on above:Performed By: #### ZFAST, CDP, BMP, TSH, ALB, ALP, ALT, AST, TBIL, TP #### [facility] [address] [place] [address] Rigging Foreman: Gareth Downey MD #### LIPR #### [address] [phone] Rigging Foreman: Leoncio Larose MDGFR,non Amer56 mL/minLow>60[facility] CenterCommunson healthcare cadillac hospital on above:Performed By: #### ZFAST, CDP, BMP, TSH, ALB, ALP, ALT, AST, TBIL, TP #### [facility] [address] [place] [address] Rigging Foreman: Gareth Downey MD #### LIPR #### [place] [address] Rigging Foreman: Leoncio Larose MDGlucose [Mass/Vol]105 mg/lGSqje90-79UwvzgKeenan Private HospitalCommunson healthcare cadillac hospital on above:Performed By: #### ZFAST, CDP, BMP, TSH, ALB, ALP, ALT, AST, TBIL, TP #### [facility] [address] [place] [address] Rigging Foreman: Gareth Downey MD #### LIPR #### [address] [phone] Rigging Foreman: LEONIE Johnsonotassium [Moles/Vol]4.3 mmol/LNormal3.7-5.3 [facility] on above:Performed By: #### ZFAST, CDP, BMP, TSH, ALB, ALP, ALT, AST, TBIL, TP #### [facility] [address] [phone] Rigging Foreman: Gareth Downey MD #### LIPR #### [address] [address] Rigging Foreman: TYREL Johnsonodium [Moles/Vol]139 mmol/JCczime581-072JlknuMetrohealth Main Campus Medical CenterComment on above:Performed By: #### ZFAST, CDP, BMP, TSH, ALB, ALP, ALT, AST, TBIL, TP #### [facility] [address] [phone] Rigging Foreman: Gareth Downey MD #### LIPR #### [address] [phone] Rigging Foreman: Leoncio Larose MDUrea nitrogen [Mass/Vol]18 mg/dLNormal8-23[facility] Medical CenterComment on above:Performed By: #### ZFAST, CDP, BMP, TSH, ALB, ALP, ALT, AST, TBIL, TP #### [facility] [address] [phone] Rigging Foreman: Gareth Downey MD #### LIPR #### [address] [phone] Rigging Foreman: TYREL Johnsontaging:NOT REPORTEDNoMercy Health St. [facility] Comment on above:Performed By: #### ZFAST, CDP, BMP, TSH, ALB, ALP, ALT, AST, TBIL, TP #### [facility] [address] [place] [address] Rigging Foreman: Gareth Downey MD #### LIPR #### [phone] Rigging Foreman: Leoncio Larose MDBilirubin, Totalon 77-79-8234Srrmegnxn Ql (U) 0.50 mg/dLNormal0.30-1.20[facility] CenterComment on above:Performed By: #### ZFAST, CDP, BMP, TSH, ALB, ALP, ALT, AST, TBIL, TP #### [facility] [address] [place] [address] Rigging Foreman: Gareth Downey MD #### LIPR #### [facility] [address] [place] [address] Rigging Foreman: Leoncio Larose MDBilirubin Ql (U)0.50 mg/dL0.3 - 1.2 mg/dLMercy Health Anderson Hospital, CACBC Auto Differentialon 72-55-6000Lveayibsp (Bld) [#/Vol]0.00 10*3/uLMercy Health Anderson Hospital, CABasophils/100 WBC (Bld)1 %0 - 2 %[place], [place] Differential TypeYESMNorwalk Memorial [facility], CAEosinophils (Bld) [#/Vol]0.10 10*3/uL [facility], CAEosinophils/100 WBC (Bld)1 %0 - 5 %[place] Erythrocyte distribution width (RBC) [Ratio]13.6 %12.1 - 15.2 %[place], KYHematocrit (Bld) [Volume fraction]41.0 %36 - 46 %[place] Hemoglobin (Bld) [Mass/Vol]14.0 g/dL12 - 16 g/dLBelle[place], KYLymphocytes (Bld) [#/Vol]1.40 10*3/uLMercy Health Anderson Hospital, CALymphocytes/100 WBC (Bld)26 %15 - 40 %[place], KYMCH (RBC) [Entitic mass]31.1 pg26 - 34 pgBellevue, KYMCHC (RBC) [Mass/Vol]34.2 g/dL31 - 37 g/dLMercy Health Anderson Hospital, CAMCV (RBC) [Entitic vol]90.9 fL80 - 100 fLBellevue, KYMonocytes (Bld) [#/Vol]0.40 10*3/uLMercy Health Anderson Hospital, KYMonocytes/100 WBC (Bld)8 %4 - 8 %[facility], TAMMIE Platelet mean volume (Bld) [Entitic vol]NOT REPORTED6 - 12 fLMercy Health Anderson Hospital, KYPlatelets (Bld) [#/Vol]267 10*3/[facility], KYPlatelets (Bld) [#/Vol] NOT REPORTEDMercy Health [facility], CARBC (Bld) [#/Vol]4.51 10*6/uL4 - 5.2 m/[facility], CARBC morphology finding Nom (Bld)NOT REPORTEDMercy Health [facility], TAMMIE Segmented neutrophils/100 WBC (Bld)64 %47 - 75 %[facility], TAMMIESegs Absolute3.40[facility], KYWBC (Bld) [#/Vol]NOT REPORTEDper 100 WBCMercy Health Anderson Hospital, CAWBC (Bld) [#/Vol]5.3 10*3/[facility], TAMMIEWBC MorphologyNOT REPORTEDMercy Health Anderson Hospital, CACBC with Diffon [id number]. Basophil0.00 k/uL Normal0.0-0.2MKeenan Private HospitalComment on above:Performed By: #### ZFAST, CDP, BMP, TSH, ALB, ALP, ALT, AST, TBIL, TP #### [facility] [address] [place] [address] Rigging Foreman: Gareth Downey MD #### LIPR #### [facility] [employer] [address] [place] [phone] Rigging Foreman: Snehal Johnson.Neutrophil (Seg)3.40 k/uLNormal2.5-7.0[facility] Medical CenterComment on above:Performed By: #### ZFAST, CDP, BMP, TSH, ALB, ALP, ALT, AST, TBIL, TP #### [facility] [address] [place] [address] Rigging Foreman: Gareth Downey MD #### LIPR #### [address] [phone] Rigging Foreman: Wili Johnson PerformedYESNormalMetrohealth Main Campus Medical CenterCommunson healthcare [facility] on above:Performed By: #### ZFAST, CDP, BMP, TSH, ALB, ALP, ALT, AST, TBIL, TP #### [facility] [address] [place] [address] Rigging Foreman: Gareth Downey MD #### LIPR #### [place] [phone] Rigging Foreman: Leoncio Larose MDBasophils/100 WBC (Bld)1 %Normal0-[address] [place] [address] on above:Performed By: #### ZFAST, CDP, BMP, TSH, ALB, ALP, ALT, AST, TBIL, TP #### [facility] [address] [place] [address] Rigging Foreman: Gareth Downey MD #### LIPR #### [place] [address] Rigging Foreman: Leoncio Larose MDEosinophils (Bld) [#/Vol]0.10 10*3/uLNormal 0.0-0.4[facility] on above:Performed By: #### ZFAST, CDP, BMP, TSH, ALB, ALP, ALT, AST, TBIL, TP #### [facility] [address] [place] [phone] Rigging Foreman: Gareth Downey MD #### LIPR #### [place] [phone] Rigging Foreman: ANDRES Johnsonosinophils/100 WBC (Bld)1 %Normal0-[address] [place] [address] on above:Performed By: #### ZFAST, CDP, BMP, TSH, ALB, ALP, ALT, AST, TBIL, TP #### [facility] [address] [place] [address] Rigging Foreman: Gareth Downey MD #### LIPR #### [address] [address] Rigging Foreman: Leoncio Larose MDErythrocyte distribution width (RBC) [Ratio]13.6 %Igllmz49.1-15.2MKeenan Private HospitalComment on above:Performed By: #### ZFAST, CDP, BMP, TSH, ALB, ALP, ALT, AST, TBIL, TP #### [facility] [address] [place] [phone] Rigging Foreman: Gareth Downey MD #### LIPR #### [place] [phone] Rigging Foreman: Leoncio Larose MDHematocrit (Bld) [Volume fraction]41.0 %Normal 36-46[facility] Campus Medical CenterComment on above:Performed By: #### ZFAST, CDP, BMP, TSH, ALB, ALP, ALT, AST, TBIL, TP #### [facility] [address] [place] [address] Rigging Foreman: Gareth Downey MD #### LIPR #### [place] [phone] Rigging Foreman: Leoncio Larose MDHemoglobin (Bld) [Mass/Vol]14.0 g/dLNormal 12.0-16.0[facility] Medical CenterComment on above:Performed By: #### ZFAST, CDP, BMP, TSH, ALB, ALP, ALT, AST, TBIL, TP #### [facility] [address] [place] [address] Rigging Foreman: Gareth Downey MD #### LIPR #### [place] [phone] Rigging Foreman: Leoncio Larose MDLymphocytes (Bld) [#/Vol]1.40 10*3/uLNormal 1.0-4.8[facility] Medical CenterComment on above:Performed By: #### ZFAST, CDP, BMP, TSH, ALB, ALP, ALT, AST, TBIL, TP #### [facility] [address] [place], [place] [phone] Rigging Foreman: Gareth Downey MD #### LIPR #### [address] [phone] Rigging Foreman: Leoncio Larose MDLymphocytes/100 WBC (Bld)26 %Dewaxf90-35JywtyMetrohealth Main Campus Medical CenterComment on above:Performed By: #### ZFAST, CDP, BMP, TSH, ALB, ALP, ALT, AST, TBIL, TP #### [facility] [address] [place] [address] Rigging Foreman: Gareth Downey MD #### LIPR #### [place] [address] Rigging Foreman: AMADEO Johnson (RBC) [Entitic mass]31.1 ucHiwyaf21-63BozfkMetrohealth Main Campus Medical CenterComment on above:Performed By: #### ZFAST, CDP, BMP, TSH, ALB, ALP, ALT, AST, TBIL, TP #### [facility] [address] [place] [phone] Rigging Foreman: Gareth Downey MD #### LIPR #### [address] [phone] Rigging Foreman: AMADEO JohnsonC (RBC) [Mass/Vol]34.2 g/dJKibssu80-38LpbpyMetrohealth Main Campus Medical CenterCommunson healthcare cadillac hospital on above:Performed By: #### ZFAST, CDP, BMP, TSH, ALB, ALP, ALT, AST, TBIL, TP #### [facility] [address] [place] [phone] Rigging Foreman: Gareth Downey MD #### LIPR #### [address] [phone] Rigging Foreman: HIRAL JohnsonCV (RBC) [Entitic vol]90.9 vNBmzdqx45-857WwxrtMetrohealth Main Campus Medical CenterCommunson healthcare cadillac hospital on above:Performed By: #### ZFAST, CDP, BMP, TSH, ALB, ALP, ALT, AST, TBIL, TP #### [facility] [address] [place], [place] [phone] Rigging Foreman: Gareth Downey MD #### LIPR #### [address] [phone] Rigging Foreman: Leoncio Larose MDMonocytes (Bld) [#/Vol]0.40 10*3/uLNormal0.0-1.0 [facility] on above:Performed By: #### ZFAST, CDP, BMP, TSH, ALB, ALP, ALT, AST, TBIL, TP #### [facility] [address] [place], [place] [phone] Rigging Foreman: Gareth Downey MD #### LIPR #### [address] [phone] Rigging Foreman: HIRAL Johnsononocytes/100 WBC (Bld)8 %Normal4-8[facility] Medical CenterComment on above:Performed By: #### ZFAST, CDP, BMP, TSH, ALB, ALP, ALT, AST, TBIL, TP #### [facility] [address] [place], [place] [phone] Rigging Foreman: Gareth Downey MD #### LIPR #### [address] [phone] Rigging Foreman: Leoncio Larose MDNeutrophil (Seg)64 %Ebtjfb79-13EptbuMetrohealth Main Campus Medical CenterComment on above:Performed By: #### ZFAST, CDP, BMP, TSH, ALB, ALP, ALT, AST, TBIL, TP #### [facility] [address] [place], [place] [phone] Rigging Foreman: Gareth Downey MD #### LIPR #### [address] [phone] Rigging Foreman: LEONIE Johnsonanthony medical center ([facility]) [#/Vol]267 10*3/iPYkeqzc419-816 [facility] on above:Performed By: #### ZFAST, CDP, BMP, TSH, ALB, ALP, ALT, AST, TBIL, TP #### [facility] [address] [place] [phone] Rigging Foreman: Gareth Downey MD #### LIPR #### [address] [phone] Rigging Foreman: Leoncio Larose [facility] ([facility]) [#/Vol]4.51 10*6/uLNormal4.0-5.2MSelect Medical Specialty Hospital - [facility] on above:Performed By: #### ZFAST, CDP, BMP, TSH, ALB, ALP, ALT, AST, TBIL, TP #### [facility] [address] [place], [place] [phone] Rigging Foreman: Gareth Downey MD #### LIPR #### [address] [phone] Rigging Foreman: Leoncio Larose MDBRONXCARE HEALTH SYSTEM ([facility]) [#/Vol]5.3 10*3/uLNormal3.5-11.0[facility] on above:Performed By: #### ZFAST, CDP, BMP, TSH, ALB, ALP, ALT, AST, TBIL, TP #### [facility] [address] [place], [place] [phone] Rigging Foreman: Gareth Downey MD #### LIPR #### [address] [phone] Rigging Foreman: Snehal Johnson.Imm.GranulocyteNOT REPORTEDNormal0.00-0.30 [facility] on above:Performed By: #### ZFAST, CDP, BMP, TSH, ALB, ALP, ALT, AST, TBIL, TP #### [facility] [address] [place] [phone] ( Rigging Foreman: Gareth Downey MD #### LIPR #### [place] [phone] Rigging Foreman: Leoncio Larose MDImmature granulocytes (Bld) [#/Vol]NOT REPORTED Lobwbz6JiavoMetrohealth Main Campus Medical CenterComment on above:Performed By: #### ZFAST, CDP, BMP, TSH, ALB, ALP, ALT, AST, TBIL, TP #### [facility] [address] [place] [phone] ( Rigging Foreman: Gareth Downey MD #### LIPR #### [place] [address] Rigging Foreman: HECTOR JohnsonBC AutomatedNOT REPORTEDNormalACMC Healthcare [facility] on above:Performed By: #### ZFAST, CDP, BMP, TSH, ALB, ALP, ALT, AST, TBIL, TP #### [facility] [address] [place] [phone] Rigging Foreman: Gareth Downey MD #### LIPR #### [place] [phone] Rigging Foreman: Jerri Johnson mean volume (Bld) [Entitic vol]NOT REPORTEDNormal6.0-12.0[facility] on above:Performed By: #### ZFAST, CDP, BMP, TSH, ALB, ALP, ALT, AST, TBIL, TP #### [facility] [address] [place], [place] [phone] Rigging Foreman: Gareth Downey MD #### LIPR #### [address] [phone] Rigging Foreman: LEONIE Johnsonlatelets (Bld) [#/Vol]NOT REPORTEDNormalMetrohealth Main Campus Medical CenterComment on above:Performed By: #### ZFAST, CDP, BMP, TSH, ALB, ALP, ALT, AST, TBIL, TP #### [facility] [address] [place] [address] Rigging Foreman: Gareth Downey MD #### LIPR #### [address] [phone] Rigging Foreman: AVILA JohnsonBC morphology finding Nom (Bld)NOT REPORTED NormalMetrohealth Main Campus Medical CenterCommunson healthcare cadillac hospital on above:Performed By: #### ZFAST, CDP, BMP, TSH, ALB, ALP, ALT, AST, TBIL, TP #### [facility] [address] [place] [address] Rigging Foreman: Gareth Downey MD #### LIPR #### [address] [phone] Rigging Foreman: Leoncio Larose MDWBC MorphologyNOT REPORTEDNormGuernsey Memorial HospitalComment on above:Performed By: #### ZFAST, CDP, BMP, TSH, ALB, ALP, ALT, AST, TBIL, TP #### [facility] [address] [place], [place] [phone] Rigging Foreman: Gareth Downey MD #### LIPR #### [address] [phone] Rigging Foreman: Leoncio Larose MDLipid Panelon [id number] [Mass/Vol] 235 mg/dLHigh<200[place], KYComment on above: Cholesterol Guidelines: <200 Desirable 200-240 Borderline >240 Undesirable Cholesterol in HDL [Mass/Vol]57 mg/dL>40[place], KYComment on above: HDL Guidelines: <40 Undesirable 40-59 Borderline >59 Desirable Cholesterol in LDL [Mass/Vol]158 mg/dLHigh0 - 130 mg/dLB[place], [place] Comment on above: LDL Guidelines: <100 Desirable 100-129 Near to/above Desirable 130-159 Borderline >159 Undesirable Direct (measured) LDL and calculated LDL are not interchangeable tests. Cholesterol in VLDL [Mass/Vol]NOT REPORTED1 - 30 mg/dLB[place], [place] Cholesterol.total/Cholesterol in HDL [Mass ratio]4.1 {ratio}<5[place], KYInterpretation and review of laboratory resultsAbnormalB[place], [place] Triglyceride [Mass/Vol]98 mg/dL<150[place], KYComment on above: Triglyceride Guidelines: <150 Desirable 150-199 Borderline 200-499 High >499 Very high Based on AHA Guidelines for fasting triglyceride, March 2012. Lipid Profileon [id number] [Mass/Vol]235 mg/dLHigh<200[facility] Medical CenterComment on above:Result Comment: Cholesterol Guidelines: <200 Desirable 200-240 Borderline >240 UndesirablePerformed By: #### ZFAST, CDP, BMP, TSH, ALB, ALP, ALT, AST, TBIL, TP #### [facility] [address] [place] [address] Rigging Foreman: Gareth Downey MD #### LIPR #### [facility] [employer] [address] [place] [phone] Rigging Foreman: ARCHIE Johnsonholesterol in HDL [Mass/Vol]57 mg/dLNormal>40 [facility] CenterCommunson healthcare cadillac hospital on above:Result Comment: HDL Guidelines: <40 Undesirable 40-59 Borderline >59 DesirablePerformed By: #### ZFAST, CDP, BMP, TSH, ALB, ALP, ALT, AST, TBIL, TP #### [facility] [address] [place] [address] Rigging Foreman: Gareth Downey MD #### LIPR #### [address] [phone] Rigging Foreman: ARCHIE Jhonsonholesterol in LDL [Mass/Vol]158 mg/dLHigh0-130 [facility] on above:Result Comment: LDL Guidelines: <100 Desirable 100-129 Near to/above Desirable 130-159 Borderline >159 Undesirable Direct (measured) LDL and calculated LDL are not interchangeable tests.Performed By: #### ZFAST, CDP, BMP, TSH, ALB, ALP, ALT, AST, TBIL, TP #### [facility] [address] [place] [phone] Rigging Foreman: Gareth Downey MD #### LIPR #### [place] [phone] Rigging Foreman: ARCHIE Johnsonholeeleazar.total/Cholesterol in HDL [Mass ratio]4.1 {ratio}Normal<5[facility] on above:Performed By: #### ZFAST, CDP, BMP, TSH, ALB, ALP, ALT, AST, TBIL, TP #### [facility] [address] [place] [phone] Rigging Foreman: Gareth Downey MD #### LIPR #### [place] [phone] Rigging Foreman: Leoncio Larose MDTriglyceride [Mass/Vol]98 mg/dLNormal<150[facility] on above:Result Comment: Triglyceride Guidelines: <150 Desirable 150-199 Borderline 200-499 High >499 Very high Based on AHA Guidelines for fasting triglyceride, March 2012.Performed By: #### ZFAST, CDP, BMP, TSH, ALB, ALP, ALT, AST, TBIL, TP #### [facility] [address] [place] [phone] Rigging Foreman: Gareth Downey MD #### LIPR #### [address] [phone] Rigging Foreman: ARCHIE Johnsonholesterol in VLDL [Mass/Vol]NOT REPORTEDNormal 1-30[facility] Medical CenterComment on above:Performed By: #### ZFAST, CDP, BMP, TSH, ALB, ALP, ALT, AST, TBIL, TP #### [facility] [address] [place], [place] [phone] Rigging Foreman: Gareth Downey MD #### LIPR #### [address] [phone] Rigging Foreman: Leoncio Larose MDOtheron [id number] granulocytes (Bld) [#/Vol]NOT REPORTED0 %[facility], CAPatient Fasting?on 92-70-8658Uwxkbcj Fasting?yesMercy Health [facility] Hospital, CAPatient fasting?on 58-41-9000Pnhsuft fasting?yes NormalMetrohealth Main Campus Medical CenterComment on above:Performed By: #### ZFAST, CDP, BMP, TSH, ALB, ALP, ALT, AST, TBIL, TP #### [facility] [address] [place], [place] [phone] Rigging Foreman: Gareth Downey MD #### LIPR #### [address] [phone] Rigging Foreman: LEONIE Johnsonrotein, Totalon 01-11-8344Cyislpa [Mass/Vol]7.4 g/dLNormal6.4-8.3[facility] Health CenterComment on above:Performed By: #### ZFAST, CDP, BMP, TSH, ALB, ALP, ALT, AST, TBIL, TP #### [facility] [address] [place], [place] [phone] Rigging Foreman: Gareth Downey MD #### LIPR #### [address] [address] Rigging Foreman: Leoncio Madoff, MDProtein [Mass/Vol]7.4 g/dL6.4 - 8.3 g/dLMercy Health Anderson Hospital, KYTSH without Reflexon [id number] Qn4.81 m[IU]/LMNorwalk Memorial Hospital, CAThyroid Stim. Horm.on 56-84-9169CMS Qn4.81 m[IU]/LNormal0.30-5.00[facility] Medical CenterComment on above:Performed By: #### ZFAST, CDP, BMP, TSH, ALB, ALP, ALT, AST, TBIL, TP #### [facility] [address] [place] [address] Rigging Foreman: Gareth Downey MD #### LIPR #### [facility] [employer] [address] [place] [address] Rigging Foreman: ODUG Johnson DIGITAL SCREEN W OR WO CAD BILATERALon 46-00-1114CA-RADS 2 - Benign, no evidence of malignancy. Normal interval followup is recommended in 12 months. OVERALL ASSESSMENT- BENIGN A letter of notification will be sent to the patient regarding the results.[facility], TAMMIEHISTORY: Screening. Previous negative bilateral breast biopsies. TECHNIQUE: Bilateral digital screening mammogram with CAD. FINDINGS: Two views of each breast show heterogeneously dense fibroglandular tissue, which may obscure small masses, bilaterally symmetric. No change from prior studies, the most recent of 02/13/2018. Suspicious calcifications: None. Suspicious mass: None. Benign calcifications: Inferior right breast, stable. Prior biopsy marker. (If skin markers were applied, circles represent skin lesions and linear markers represent scars.)[facility], [place], [place] Incoming Radiant Results From [employer] - 02/18/2019 3:58 PM EDT HISTORY: Screening. Previous negative bilateral breast biopsies. TECHNIQUE: Bilateral digital screening mammogram with CAD. FINDINGS: Two views of each breast show heterogeneously dense fibroglandular tissue, which may obscure small masses, bilaterally symmetric. No change from prior studies, the most recent of 02/13/2018. Suspicious calcifications: None. Suspicious mass: None. Benign calcifications: Inferior right breast, stable. Prior biopsy marker. (If skin markers were applied, circles represent skin lesions and linear markers represent scars.) IMPRESSION: BI-RADS 2 - Benign, no evidence of malignancy. Normal interval followup is recommended in 12 months. OVERALL ASSESSMENT- BENIGN A letter of notification will be sent to the patient regarding the results. [place] Vital Signs Date TimeVital SignValuePerforming EmhouzvscYonawojj02-75-3521 10:31-0400Body ucavqv317.1 cmPaul Laffay DO Work Phone: [facility] HospitalKkcjywkhnc58-16-1979 10:31-0400Body mass index (BMI) [Ratio]22.47 kg/m2Paul Laffay DO Work Phone: [facility] HospitalYuohqyutrx54-98-3998 10:31-0400Body jveiql08.24 kgPaul Laffay DO Work Phone: [facility] HospitalGpfwiuoger30-09-1892 10:51-0500Body mass index (BMI) [Ratio]21.9 kg/i6Lvqhpcxe Ball DO Work Phone: [phone] [place], [place] 4480411-18-2024 10:33-0500 Body cehhah985.37 cmBenjamin Ball DO Work Phone: [phone] [place], [place] 4480411-18-2024 10:33-0500 Body vwmooj51.89 kgBenjamin Ball DO Work Phone: [phone])[facility] [place], [place] 4480411-18-2024 10:33-0500 Diastolic blood oklexqex28 mm[Hg]Jose Ball DO Work Phone: [phone] [place], [place] 4480411-18-2024 10:33-0500 Heart rate69 /minBenjamin Ball DO Work Phone: [phone] [place], [place] 4480411-18-2024 10:33-0500 Respiratory rate12 /minBenjamin Ball DO Work Phone: [phone])[facility] [place], [place] 4480411-18-2024 10:33-0500 Systolic blood bnhmthiw525 mm[Hg]Jose Ball DO Work Phone: [phone])[facility] [place], [place] 4480410-31-2024 10:36-0400 Body mass index (BMI) [Ratio]22.3 kg/b4FvymzPerez Meyers MD Work Phone: [facility] HospitalVrxbpyzsjt70-30-0670 10:36-0400Body qtaxof43.78 kgPerez Meyers MD Work Phone: noDo[facility] Hospital of SpringfieldNbaojbprdc74-78-7644 10:36-0400Diastolic blood zhtwwglo99 mm[Hg]Perez Meyers MD Work Phone: [facility] HospitalTspqifsuyb74-02-8384 10:36-0400Systolic blood asfodjwy745 mm[Hg]Perez Meyers MD Work Phone: [facility] HospitalVvorcrgdhy78-98-7558 14:30-0500Body .83 cmBenjamin Ball Other noN[employer] Other 11-15-2023 14:30-0500Body mass index (BMI) [Ratio] 23.08 kg/l3Wnsoshlr Ball Other [employer] Other 11-15-2023 14:30-0500Body vljujb45.96 kgBenjamin Ball Other [employer] Other 11-15-2023 14:30-0500Diastolic blood btozuufc86 mm[Hg] Jose Ball Other [employer] Other 11-15-2023 14:30-0500Respiratory rate12 /minBenjamin Ball Other [employer] Other 11-15-2023 14:30-0500Systolic blood ahvhqthw636 mm[Hg] Jose Ball Other [employer] Other 04-06-2022 14:00-0400Hourly RoundingRonobir BERTHA [address] [place], [place] 9540404-06-2022 14:00-0400 Promise to ReturnRonobir BERTHA [address] [place], [place] 5358904-06-2022 10:53-0400Body wxvbujbefqn29.7 [degF]Ronobir BERTHA [address] [place], [place] 5358904-06-2022 10:53-0400 Diastolic blood piggeibp57 mm[Hg]Ronobir BERTHA [address] [place], [place] 5358904-06-2022 10:53-0400Heart rate65 /minRonobir BERTHA [address] [place], [place] 5358904-06-2022 10:53-0400Mean blood tesgbtho58 mm[Hg]Ronobir BERTHA [address] [place], [place] 8402704-06-2022 10:53-6950JjS2% (BldA) [Mass fraction]97 %Ronobir BERTHA [address] [place], [place] 5358904-06-2022 10:53-0400 Systolic blood mfkvkvna658 mm[Hg]Ronobir BERTHA [address] [place], [place] 5358904-06-2022 08:18-3129OaI1% (BldA) [Mass fraction]98 %Ronobir BERTHA [address] [place], [place] 5358904-06-2022 07:00-0400Blood Pressure LocationRonobir BERTHA [address] [place], [place] 5358904-06-2022 07:00-0400Body nuevhvyjppp78.88 [degF]Ronobir BERTHA [address] [place], [place] 5358904-06-2022 07:00-0400 BP/Pulse Patient PositionRonobir BERTHA [address] [place], [place] 8402704-06-2022 07:00-0400 Diastolic blood lailcgrh24 mm[Hg]Ronobir BERTHA [address] [place], [place] 5358904-06-2022 07:00-0400Heart rate57 /minRonobir BERTHA [address] [place], [place] 5358904-06-2022 07:00-0400Mean blood mm[Hg]Ronobir BERTHA [address] [place], [place] 5358904-06-2022 07:00-0400 Respiratory rate16 /minRonobir BERTHA [address] [place], [place] 5358904-06-2022 07:00-0400 Systolic blood zicqdwpx506 mm[Hg]Ronobir BERTHA [address] [place], [place] 8402704-06-2022 05:38-0400Body ehnfqtbiujt10.52 [degF]Ronobir BERTHA [address] [place], [place] 8402704-06-2022 05:38-0400 Diastolic blood mm[Hg]Ronobir BERTHA [address] [place], [place] 5358904-06-2022 05:38-0400Heart rate75 /minRonobir BERTHA [address] [place], [place] 5358904-06-2022 05:38-0400Mean blood telbqveo62 mm[Hg]Ronobir BERTHA [address] [place], [place] 5358904-06-2022 05:38-0400 Systolic blood qernvgrv802 mm[Hg]Ronobir BERTHA [address] [place], [place] 5358904-06-2022 01:50-0400Mean blood mm[Hg]Ronobir BERTHA [address] [place], [place] 5358904-05-2022 19:58-0400Mean blood mm[Hg]Ronobir BERTHA [address] [place], [place] 5358904-05-2022 11:33-0400Blood Pressure LocationRonobir BERTHA [address] [place], [place] 5358904-05-2022 11:33-0400 BP/Pulse Patient PositionRonobir BERTHA [address]04-05-2022 11:33-0400Mean blood lhuyffze02 mm[Hg]Ronobir BERTHA [address] [place], [place] 5358904-05-2022 11:33-0400 Respiratory rate17 /minRonobir BERTHA [address] [place], [place] 8402704-05-2022 09:44-0400Blood Pressure LocationRonobir BERTHA [address]04-05-2022 09:44-0400 BP/Pulse Patient PositionRonobir BERTHA [address]04-05-2022 09:44-0400 Respiratory rate17 /minRonobir BERTHA [address] [place], [place] 5358904-05-2022 09:41-0400Heart rate63 /minRonobir BERTHA [address]04-05-2022 08:14-0400 Respiratory rate14 /minRonobir BERTHA [address] [place], [place] 5358904-05-2022 07:26-0400 Respiratory rate18 /minRonobir BERTHA [address] [place], [place] 5358904-05-2022 06:13-0400 Respiratory rate12 /minRonobir BERTHA [address] [place] [address] Encounters Encounter DateEncounter TypeCare ProviderFacilityStart: 11-09-2024 End: 14-49-9052Psqwbc outpatient visit 10 minutesPaul Michell Bustamante DO Work Phone: [facility] ST GENSComment on above:Anorectal pain (Primary Dx); Blood in stool; Prolapsed internal hemorrhoids, grade 3Start: 11-09-2024 End: 44-04-8441tilagojcszXOSK C LAFFAYNot AvailableStart: 10-12-2024 End: 75-08-9326Xcqunx outpatient new 45 minutesPaul C Laffay DO Work Phone: DF GENSComment on above:Prolapsed internal hemorrhoids, grade 3 (Primary Dx); Blood in stool; Anorectal painStart: 10-12-2024 End: 47-94-0080fqsmivfcajVQHZ C LAFFAYNot AvailableStart: 05-10-2024 End: 88-55-0148pelhzbdsxnSbhpvzmg Ball DO Work Phone: [facility] Work Phone: Start: 05-10-2024 End: 84-79-9399Jkjixvk encounter procedureBenjamin Ball DO Work Phone: [facility] Work Phone: Start: 05-07-2024 End: 82-90-6747Atqfoej encounter procedureBenjamin Ball DO Work Phone: [facility] Work Phone: Start: 05-07-2024 End: 92-05-8641cdounlvytdHhdotouk Ball DO Work Phone: [facility] Work Phone: Start: 09-54-9427Lfvtupa encounter procedureBenjamin Ball DO Work Phone: [facility]: 95-21-6978Hyx- patient / Non-visitBenjamin Ball DO Work Phone: [facility] Work Phone: Start: 38-67-7647Nom-patient / Non-visitBenjamin Ball DO Work Phone: [facility] Work Phone: Start: 04-22-2024 End: 90-75-4305Ebybdy Jm Meyers MD Work Phone: [facility] OBStart: 04-22-2024 End: 01-51-5870Uauxmc Jm Meyers MD Work Phone: [facility] OBStart: 04-22-2024 End: 82-70-4085Myklop outpatient visit 25 minutesPerez Meyers MD Work Phone: [facility] OBComment on above:OAB (overactive bladder) (Primary Dx); Other screening mammogram; Urinary frequency; Bleeding hemorrhoidsStart: 04-22-2024 End: 28-47-6467ehpfucrfaaMYOIG J PRINTYNot AvailableStart: 07-11-2023 End: 26-23-9050qcpabkgworZfaiicnr Ball Other [employer] Other Start: 84-56-6317Jpsdkvqpr encounterBenjamin BallNAPOLEONG [facility] ClinicStart: 05-07-2023 End: 92-02-0387iqdfapeynrJevongpa Ball Other [employer] Other Start: 80-88-7610Yryxkro encounter procedureBenjamin BallFPG [facility] Medical ClinicStart: 04-18-2023 End: 28-45-1149retisddkcsBllqduiz Ball Other [employer] Other Start: 37-16-0224Nzgfhueqr encounterBenjamin BallFPG [facility] Medical ClinicStart: 05-06-2022 End: 97-17-0156chpnccwuuaBV Jose Patel Work Phone: [facility] Work Phone: Start: 05-06-2022 End: 57-45-8819Anmbfcx encounter procedureDO Jose Patel Work Phone: [facility] Start: 05-03-2022 End: 83-87-1288rppqimwxroAL NONE LISTED REQUESTFacility:A1Cgegi: 72-69-0221Asbvj health examinationBekrystyna Patel Other [facility] [employer] Other Start: 04-22-2022 End: 74-51-0261qxffkioxtuXF Jose Patel Work Phone: [facility] Work Phone: Start: 04-22-2022 End: 79-74-9532Broxcfe encounter procedureDO Jose Patel Work Phone: [facility] Start: 01-26-2022 End: 30-01-6172mlzmneggtaKM NONE LISTED REQUESTFacility:K3Rmmsk: 09-26-2021 End: 39-37-4283Efg-admission assessmentAmanramírez MUSE [facility] Start: 09-25-2021 End: 79-72-5725DdbhrackjklAahypni R MALLICK [facility] Start: 05-24-2021 End: 36-75-1796sepvnmrfqzKO NONE LISTED REQUESTFacility:T4Jnmsc: 02-23-2020 End: 20-22-7403Thtepmx encounter procedureJOURIEL ZAMORANOSelect [facility] Start: 02-23-2020 End: 56-12-6695Ltkttvtytl hospital visit by physicianN[facility] MammographyComment on above:Breast cancer screening by mammogram Start: 01-07-2020 End: 96-24-0050Wizbcrc encounter procedureBEKRYSTYNA Cole [facility] Start: 01-07-2020 End: 70-33-4590Ennigpceec hospital visit by physicianJose Sahu LaboratoryStart: 02-18-2019 End: 07-10-8200Skgzgpumsv hospital visit by physicianN[facility] System Mammography RoomMWH MAMMOGRAPHYComment on above:Breast cancer screeningStart: 05-05-2012 End: 31-82-3116Rhmazvitq encounterSigutavon Triplett Work Phone: Gastroenterology Procedures DateProcedureProcedure DetailPerforming ClinicianStart: 46-43-1009Fzbldkbju mammography of bilateral breastsBekrystyna Patel DO Work Phone: Start: 59-03-9095Lqvln dip stick/tablet rgnt non-auto w/o micrscpBrian Byron Meyers MD Work Phone: start: 77-49-3724Kzcz energy X-ray absorptiometryDO Jose Patel Work Phone: Start: 91-01-3115Moxbvgndu mammography of bilateral breastsDO Jose Patel Work Phone: Start: 72-05-1060Bjusyqmvx mammography bi 2-view breast inc cadBENZION BALLStart: 72-66-6307Dsostvlhn mammography bi 2-view breast inc cadMeronuriel Tripp Work Phone: start: 25-51-1121Xuyolvg serum plasma/whole blood JOSE BALLStart: 42-34-2987Dwqnw of phosphatase alkalineBENZION BALLStart: 65-63-9059Ouzif of thyroid stimulating hormone tshBENZION BALLStart: 01-07-2020 Basic metabolic panel calcium totalBENZION BALLStart: 65-20-4369Firdxsolh total JOSE BALLStart: 82-36-2880Oonbi count complete auto&auto difrntl wbcBENZINO BALLStart: 97-30-4822Mgehb typing serologic aboBENZION BALLStart: 01-07-2020 Lipid panelBENZION BALLStart: 37-04-7112Fbfuhbo xcpt refractometry serum plasma/whl bldBENZION BALLStart: 43-56-2884Pfdfhjatmfa alanine amino alt sgpt JOSE BALLStart: 39-35-8593Cfnrgguhjeo aspartate amino ast sgotBENZION BALL Start: 11-72-6333Bqdanjt serum plasma/whole bloodBekrystyna Patel Work Phone: Start: 77-34-4407Gzkgf of phosphatase alkalineBekrystyna [employer] Work Phone: Start: 22-67-6817Gdunt of thyroid stimulating hormone tshBenzion [employer] Work Phone: Start: 93-46-8474Efqsg metabolic panel calcium total Jose [employer] Work Phone: Start: 23-82-2385Snbszfwwy totalBenzion [employer] Work Phone: Start: 01-32-6396Ajceo count complete auto&auto difrntl wbcBekrystyna [employer] Work Phone: Start: 17-61-6766Crgsv panelBenzion [employer] Work Phone: Start: 35-52-6852BJEPQCQ FASTING?Jose [employer] Work Phone: Start: 97-80-1615Zveevbk xcpt refractometry serum plasma/whl bldBenzion [employer] Work Phone: Start: 84-14-8388Twdalptniky alanine amino alt sgpt [employer] Work Phone: Start: 86-42-1229Hmilmwxpzns aspartate amino ast sgot [employer] Work Phone: Start: 67-80-2582Fzljddxfx mammography bi 2-view breast inc cadAnabel Tripp Work Phone: basal cell carcinoma of skin (disorder)Ronjulio VASQUESICK Depression screeningBekrystyna [employer] Other HysterectomyRonjulio VASQUESICK Plan of Treatment DateCare ActivityDetailAuthorStart: 04-28-2025 End: 43-51-4973Eyfzdbh encounter fukvvuvgj51/06/2025 10:45 AM EST Office Visit [facility] [address] [place] [address] Perez Meyers MD [address] [place] [address] [facility] OBStart: 32-40-9167Cdxnp panelLipid [facility] CAStart: 11-09-2024 End: 30-23-0702Ocjwknn encounter gerlesssc62/20/2025 11:15 AM EDT Office Visit [facility] [address] [place] [phone] Tomer Bustamante DO [address] [place] [address] [facility] GENSStart: 04-30-2024 End: 94-01-9199OYL Breast - bilateral screeningBilateral screening mammogram with tomosynthesis Imaging Routine Other screening mammogram Expected: 04/30/2024, Expires: 06/21/2025[facility] Work Phone: comment on above:Expected: 04/30/2024, Expires: 06/21/2025Start: 04-22-2024 End: 64-69-5475Vihbfzc encounter mmamhcjcv85/31/2024 10:45 AM EDT Office Visit [facility] [address] [place] [address] Perez Meyers MD [address] [place] [address] OAB (overactive bladder); Other screening mammogramNOMS [facility] OBComment on above:OAB (overactive bladder); Other screening mammogramStart: 70-11-6621Ejuij screenLipid [place], [place]Start: 67-17-5820Hflgnnnix vaccinationINFLUENZA (Season Ended)[facility]: 46-47-9182Syyqrc cancer screenBreast cancer [place], [place]Stlen[place]: 00-98-0589Usxiastvi for malignant neoplasm of breastBreast cancer [facility]: 15-00-3279Spnjklvdf vaccinationFlu vaccine (#1) [facility]: 47-08-3230Bkecilxfo vaccinationFlu vaccine (#1)[facility]: 17-28-4621Fvtbk cancer screen colonoscopyColon cancer screen colonoscopyTrumbull Regional Medical Center: 41-22-2026Nqcotnqkk for malignant neoplasm of colonTrumbull Regional Medical Center: 69-72-0716Gygbbkyf Vaccine (1 of 2) Shingles Vaccine (1 of 2)[facility]: 62-52-7072GJTLRWOA VACCINE (1 of 2)SHINGRIX VACCINE (1 of 2)[facility]: 21-45-9641KDDMUYPO SCREENDIABETES SCREENGalion Community Hospitaltart: 77-13-0831GATWK SCREENLIPID SCREEN [facility]: 79-82-1717DztmutscdlnCPUQIWFOPNzauidfxh ClinicStart: 01-18-6601JUF TESTINGHPV TESTINGGalion Community Hospitaltart: 14-58-7798Mmomtegs cancer screenCervical cancer screenTrumbull Regional Medical Center: 56-24-1353NYM TESTINGPAP TESTINGGalion Community Hospitaltart: 83-01-3578Qkbvrdvwv for malignant neoplasm of cervixCervical cancer screenTrumbull Regional Medical Center: 05-85-5742MJcV/Tdap/Td vaccine (1 - Tdap)DTaP/Tdap/Td vaccine (1 - Tdap)[facility]: 65-07-1473Cqhzi microalbumin profileDTAP,TDAP,TD (1 - Tdap)[facility] Start: 47-37-4518ALKFJKJJT C SCREENINGHEPATITIS C SCREENINGCommunity Memorial Hospital Start: 46-29-0187IZJ SCREENINGHIV SCREENINGGal[facility] Hospitaltart: 06-42-2935MKI screenHIV screenTrumbull Regional Medical Center: 90-05-4912UAY screeningHIV screen [facility]: 73-42-0302Gpdaz depression screening assessment DEPRESSION SCREENINGGalion Community Hospitaltart: 06-49-9368Zszwexjqt C screenHepatitis C [facility]art: 31-25-1930Pqotqzobl C screeningHepatitis C [place], [place] Immunizations Immunization DateImmunizationNotesCare UvqzjbvaSwyavyqb72-51-2176brevlzi toxoid, reduced diphtheria toxoid, and acellular pertussis vaccine, adsorbedRonobir BERTHA [facility] Payers DatePayer CategoryPayerPolicy [id number] (Managed Care)[facility] [id number] 2021MedicareMEDICARE Member Subscriber Plan / Payer (Effective 2021-Present) Name: Mindi Sadler Member ID: [id number] Relation to Subscriber: Self Name: Mindi Sadler Subscriber ID: [id number] Payer ID: STATE Group ID: Not on file Type: Medicare Address: [place] [id number] [id number] UnknownMEDICAL MUTUAL MEDICAL MUTUAL AMPARO - EXCHANGE [id number] 2019- Present [phone] [address] [address] [id number] [id number]DID MUTUAL MEDICAL MUTUAL [address] xxxxxxxxxxxx 2014-Present [phone] [address] [facility] [place] [address]cvmoqpfkjldr [id number] 76-49-9451PwppdbsLKF ZSTEFFO SUPERMED PLUS [id number] 2005-2019 PPO [id number]-eqe [id number] 2.16840.1.766197.3.57[id number] 2.16840.1.982061.3.57[id number] 2..840.1.657238.3.57[id number] 2.0.1.536763.3.57[id number] 2.16.840.1.197554.3.579.2.1259UnknownAnthem BC/BS [id number] 2.16.840.1.961910.3.579.2.593 [id number] 2.16840.1.0[id number] 2.16.840.1.4[id number] 2.16.840.1.030901.3.579.2.531 Social History DateTypeDetailFacilityTobacco smoking status NHISUnknown if ever smokedTrumbull Regional Medical Center: 37-39-0748Jsu Assigned At BirthNot on [address] Street Hospitalart: 03-17-2012 End: 78-76-5459Bjvpdhv smoking status NHISNever smokerKettering Health Springfieldtart: 03-17-2012 End: 06-36-4494Egffsbw intakeCurrent drinker of alcohol (finding)[facility]: 76-91-8342Demnjly Comment1-2 drinks per weekPremier Health Upper Valley Medical CenterComment on above:Denies.Start: 04-21-2024 End: 20-64-8284Cqh [facility]: 90-56-2441Gni [facility]igned At [facility]: 24-04-3045Rqvassm use and exposureSmokeless tobacco non-userN[facility]S Healthcare Start: 04-21-2024 End: 08-65-8003Cyznireoi beverage intakeNOCO HealthcareStart: 05-08-2024 End: 30-68-7521VlkXxnoen (finding)[facility] Clinical Notes 05-06-2012 to 10-12-2024 Note Date & BifhDleaIeadwgof45-07-5846 History of Present illness Narrative* Tomer Bustamante, DO - 10/12/2024 10:30 AM EDT Images from the original note were not included. Mindi Sadler 1955 Mindi Sadler is a 69 y.o. female presents with chief complaint of Consult (hemorrhoids) HPI: HPI Patient says that when she has a bowel movement she feels extra skin in her anus. She has to use wipes. If she has looser stools that day she will get some bleeding and feeling like things are pushing out. Sometimes she can get soreness or throbbing after she has a bowel movement which can cause discomfort. She will also get bleeding if she is multiple bowel movements per day. Occasionally she might get a lot of blood. Previously she took some Metamucil that did not really help her hemorrhoid issues and it did cause her a lot of bloating. She had a colonoscopy 2 years ago. SUBJECTIVE: MEDICATIONS: ALLERGIES Current Outpatient Medications Medication Instructions CALCIUM PO 2 times daily hydrocortisone (Anusol-HC) 25 MG suppository Insert 1 suppository twice daily for 2 weeks. solifenacin (VESICARE) 5 mg, Oral, Daily, Swallow tablet whole; do not crush, chew, or split. Allergies Allergen Reactions Codeine GI intolerance and Other Other Reaction(s): Intolerance, Nausea/Vomiting PAST MEDICAL HISTORY: SOCIAL HISTORY SURGICAL HISTORY: Past Medical History: Diagnosis Date Anxiety Basal cell carcinoma Facial Cancer of skin of left lower leg Cataract Dry eyes GERD (gastroesophageal reflux disease) Hepatitis Thyroid disease ([facility] Social History Tobacco Use Smoking status: Never Smokeless tobacco: Never Substance Use Topics Alcohol use: Yes Alcohol/week: 1.0 standard drink of alcohol Types: 1 Glasses of wine per week Drug use: Never Past Surgical History: Procedure Laterality Date BREAST BIOPSY Right 31 year's ago CATARACT EXTRACTION SECTION, LOW TRANSVERSE August 02 1979 COLONOSCOPY COLONOSCOPY DILATION AND CURETTAGE OF UTERUS EGD HYSTERECTOMY Nov 09 2002 CONSUELO, BSO REVIEW OF SYMPTOMS: Review of Systems Constitutional: Negative for appetite change, fatigue and fever. HENT: Negative for trouble swallowing. Respiratory: Negative for cough and shortness of breath. Cardiovascular: Negative for chest pain. Gastrointestinal: Positive for anal bleeding and rectal pain. Negative for abdominal pain. Genitourinary: Negative for hematuria. Musculoskeletal: Negative for back pain. Skin: Negative for wound. Neurological: Negative for seizures. OBJECTIVE: Visit Vitals Ht 5' 5 Wt 135 lb BMI 22.47 kg/m OB Status Hysterectomy Smoking Status Never BSA 1.68 m Physical Exam Constitutional: Appearance: Normal appearance. HENT: Head: Atraumatic. Eyes: General: No scleral icterus. Cardiovascular: Rate and Rhythm: Regular rhythm. Pulmonary: Effort: No respiratory distress. Abdominal: General: There is no distension. Tenderness: There is no abdominal tenderness. Genitourinary: Comments: On visual inspection there are some perianal tags and there is a prolapsing internal hemorrhoid on the left lateral side. With Valsalva that is accentuated. On digital exam there is good tone there is no gross blood there is no masses. There are hemorrhoids noted at other locations as well. Skin: Findings: No bruising. Neurological: Mental Status: She is alert. Gait: Gait normal. ASSESSMENT AND PLAN: Assessment/Plan Diagnoses and all orders for this visit: Prolapsed internal hemorrhoids, grade 3 Blood in stool Anorectal pain We discussed options, she could try Citrucel and see if any improvement versus PPH stapled hemorrhoid pexy. After discussing options she would like to try fiber supplementation 1st which I think is the best course. I will see her back again in 4 weeks to administrative judge improvement with fiber supplementation. documented in this encounterLiberty HospitalAtsttjlegg14-84-6203 History of Present illness Narrative* Perez Meyers MD - 04/22/2024 10:45 AM EDT Images from the original note were not included. Perez Meyers MD Obstetrics and Gynecology Patient: Mindi Sadler, : 1955 (68 y.o.) DOS 04/22/24 Exam Date: 04/22/2024 HPI: Pt reports she has urgency. She prviously saw Dr Caraballo who did a cysto and found a small, scarrifed bladder. She has tried multiple OAB meds, but found Enablex to work the best. However, it became too expensive, and so she let the prescription lapse I did refill her Enablex, but apparently Enablex has been discontinued. She has prev tried Ditropan and Detrol without benefit. She has not tried Vesicare. She also c/o bleeding hemorrhoids Visit Vitals BP 112/70 Wt 134 lb BMI 22.30 kg/m OB Status Hysterectomy Smoking Status Never BSA 1.67 m OB History Para Term AB Living 2 1 1 0 0 1 SAB IAB Ectopic Multiple Live Births 0 0 0 0 1 # Outcome Date GA Lbr Tyson/2nd Weight Sex Type Anes PTL Lv 2 1 Term Obstetric Comments Pap: 10/23-Neg CHRISTINE Mammo: 04/29/23-Neg ([facility] DEXA: 05/14 Hysterectomy Medication and Allergies Medication Documentation Review Audit Reviewed by Pam Mccollum MA (Title Investigator) on 04/22/24 at 1044 Medication Order Taking? Sig Documenting Provider Last Dose Status CALCIUM PO [id number] Take by mouth twice a day. Historical Provider, Active darifenacin (Enablex) 15 MG 24 hr tablet [id number] Take 1 tablet (15 mg) by mouth in the morning. Donot crush, chew, or split.. Perez Meyers MD 04/16/24 2009 Allergies Allergen Reactions Codeine GI intolerance and Other Other Reaction(s): Intolerance, Nausea/Vomiting Past Medical History: Diagnosis Date Anxiety Basal cell carcinoma Facial Cancer of skin of left lower leg Cataract Dry eyes GERD (gastroesophageal reflux disease) Hepatitis Thyroid disease (CMS/HCC) Past Surgical History: Procedure Laterality Date BREAST BIOPSY Right 31 year's ago CATARACT EXTRACTION SECTION, LOW TRANSVERSE August 02 1979 COLONOSCOPY COLONOSCOPY DILATION AND CURETTAGE OF UTERUS EGD HYSTERECTOMY Nov 09 2002 CONSUELO, BSO Physical Exam: Objective Physical Exam Constitutional: Appearance: Normal appearance. Genitourinary: Vulva normal. No vaginal discharge or bleeding. Mild vaginal atrophy present. Right Adnexa: absent. Left Adnexa: absent. Cervix is absent. Uterus is absent. Rectum: External hemorrhoid present. Breasts: Right: Normal. Left: Normal. Pulmonary: Effort: Pulmonary effort is normal. Abdominal: General: Abdomen is flat. Palpations: Abdomen is soft. Neurological: Mental Status: She is alert. Associated Treatments and Results - ICD-10-CM 1. OAB (overactive bladder) N32.81 2. Other screening mammogram Z12.31 Bilateral screening mammogram with tomosynthesis 3. Urinary frequency R35.0 Urine dip 4. Bleeding hemorrhoids K64.9 Will prescribe Vesicare. Refer to Gen Surg to consider hemorrhoidectomy Assessment/Plan Orders Placed This Encounter Procedures Bilateral screening mammogram with tomosynthesis U/S and spot compression if indicated Standing Status: Future Standing Expiration Date: 06/21/2025 Order Specific Question: Reason for exam: Answer: screen Urine dip documented in this encounterLiberty HospitalFnormbxkrv82-47-7170 Evaluation note* Encounter Date Diagnosis Assessment Notes Treatment Notes Treatment Clinical Notes Jun, Motion sickness, initial encount er (ICD-10 - T75.3XXA) [employer] Other 11-15-2023 Evaluation note* Encounter Date Diagnosis Assessment Notes Treatment Notes Treatment Clinical Notes Apr, Medicare annual wellness visit, subsequent (ICD-10 - Z00.00) Personalized health advice was given to the beneficiary including a written plan for screenings discussed and provided. Advanced care planning reviewed and/or information given as requested. Additional counseling was provided here today in regards to, [ ]. The above visit was performed by [ ], under direct supervision of [ ]. Document reviewed and amended by provider signed below. Apr,Hypercholesteremia (ICD-10 - E78.00)Instructed on diet and exercise.Discussed the beneficial effects of lowering cholesterol in reducing the risk for cerebrovascular and cardiovascular disease. Apr,A (pernicious anemia) (ICD-10 - D51.0)B12 low normal, continue supplement Apr,Screening mammogram for breast cancer (ICD-10 - Z12.31)Instructed patient on monthly SBE and yearly mammograms. [employer] Other 10-27-2023 Evaluation note* Encounter Date Diagnosis Assessment Notes Treatment Notes Treatment Clinical Notes Mar, Familial hypercholesterolemia (I CD-10 - E78.01) Diet and exercise. Discussed statin therapy, patient will consider Mar,12 deficiency (ICD-10 - E53.8) Mar,Vitamin D deficiency (ICD-10 - E55.9) Mar,Fatigue, unspecified type (ICD-10 - R53.83) [employer] Other 04-06-2022 Evaluation + Plan noteExtracted from:Title: Discharge NoteAuthor:Briana SY, madDate:09/26/21 1. Chest pain (R07.9: Chest pain, unspecified) Resolved 2. HLD (hyperlipidemia) (E78.5: Hyperlipidemia, unspecified) Chronic Follow up w/PCP 3. GERD (gastroesophageal reflux disease) (K21.9: Gastro-esophageal reflux disease without esophagitis) Chronic Follow up w/PCP 4. DVT prophylaxis (Z29.9: Encounter for prophylactic measures, unspecified) Orders: docusate, 100 mg = 1 cap(s), Oral, BID, PRN for constipation, # 20 cap(s), Refills(s) 0 polyethylene glycol 3350, 17 gram, Oral, Daily, 255 gram, Refill(s) 0, dissolve in water before taking Discharge Patient Stable Home Prescriptions Colace 100 mg Cap, 100 mg= 1 cap(s), Oral, BID, PRN MiraLax oral powder for reconstitution, 17 gm, Oral, Daily Home Multiple Vitamins Tab, 1 tab(s), Chewed, Daily Viactiv Multi-Vitamin, 1 tab(s), Chewed, Daily Vitamin D3 1000 intl units oral capsule, 25 mcg= 1 cap(s), Oral, Daily With When Contact Information JOSE PATEL 10/01/2021 11:30 AM EDT [address] [place] [address]- Business (1) Additional Instructions: [place] [address] [place] [address]- Business (1) Additional Instructions: Extracted from:Title:Admission H & PAuthor:Maximiliano STONE DO RDate:09/25/21 1. Chest pain (R07.9: Chest pain, unspecified) Most likely atypical. Patient had chest CT angiography done in the emergency department. Preliminary report shows no evidence of PE or aortic dissection. Initial troponin is negative. We will cycle cardiac enzymes. Will check hemoglobin A1c and fasting lipid panel for risk stratification. Other possible causes of chest pain include GERD versus anxiety/stress. 2. HLD (hyperlipidemia) (E78.5: Hyperlipidemia, unspecified) Patient has been recommended in the past to take a statin but because of potential side effects shedeclined. Patient has been using lifestyle changes and states that her cholesterol has decreased from approximately 300 to approximately 250 over the past few years. Will check fasting lipid panel as noted above and treat accordingly. 3. GERD (gastroesophageal reflux disease) (K21.9: Gastro-esophageal reflux disease without esophagitis) Patient states that she does have heartburn from time to time. Will order Tums as needed for time being. 4. DVT prophylaxis (Z29.9: Encounter for prophylactic measures, unspecified) SCD, Lovenox Orders: acetaminophen, 650 mg = 2 tab(s), Tab, Oral, q6hr PRN Pain, Routine, Start date 09/25/21 7:31:00 EDT, 09/25/21 7:31:00 EDT aspirin, 81 mg = 1 tab(s), Tab-EC, Oral, Daily, Routine, Start date 09/25/21 9:00:00 EDT, 09/25/21 7:31:00 EDT calcium carbonate, 1,000 mg = 2 tab(s), Tab-Chew, Oral, q3hr PRN Control of stomach acid for 30 day(s), Stop date 10/25/21 7:30:00 EDT, Routine, Start date 09/25/21 7:31:00 EDT, 09/25/21 7:31:00 EDT enoxaparin, 40 mg = 0.4 mL, Injection, SubCutaneous, Daily, Routine, Start date 09/25/21 9:00:00 EDT, 09/25/21 7:31:00 EDT hydrALAZINE, 10 mg = 0.5 mL, Injection, IV Push, q6hr PRN Other (see comment), Routine, Start date 09/25/21 7:31:00 EDT, 09/25/21 7:31:00 EDT ibuprofen, 800 mg = 1 tab(s), Tab, Oral, TID PRN Pain, Routine, Start date 09/25/21 7:31:00 EDT, 09/25/21 7:31:00 EDT ondansetron, 4 mg = 2 mL, Injection, IV Push, q6hr PRN Nausea, Routine, Start date 09/25/21 7:31:00EDT, 09/25/21 7:31:00 EDT promethazine, 12.5 mg = 0.5 mL, Injection, IV Push, q6hr PRN Nausea, Routine, Start date 09/25/21 7:31:00 EDT, 09/25/21 7:31:00 EDT Below the Knee Intermittent Pneumatic Compression Device Cardiac Diet Cardiac Monitoring HgbA1c Lipid Panel Notify Provider Vital Signs Notify Provider Vital Signs Oxygen Protocol Place in Status Resuscitation Status - Full Saline Lock Convert From IV Troponin Troponin Up ad Venessa Vital Signs Weight Anticipated stay less than 2 midnights. Patient will be observation status. Extracted from:Title:ED NoteAuthor:Bogdan Bettencourt DO ADate:09/25/21 Chest pain (R07.9: Chest baltazar n, unspecified) ST segment depression (R94.31: Abnormal electrocardiogram [ECG] [EKG]) Orders: aspirin, 162 mg = 2 tab(s), Tab-Chew, Oral, Once, Stop date 09/25/21 6:38:00 EDT, STAT, Start date 09/25/21 6:38:00 EDT, 09/25/21 6:38:00 EDT Sodium Chloride 0.9% intravenous solution, Soln-IV, Misc, Once, Stop date 09/25/21 5:36:30 EDT, Physician Stop, 09/25/21 5:36:30 EDT Sodium Chloride 0.9% intravenous solution, 1,000 mL, Soln-IV, IV, Once, Stop date 09/25/21 4:55:00 EDT, STAT, Start date 09/25/21 4:55:00 EDT, Infuse over 61, minute(s) Sodium Chloride 0.9% intravenous solution, Soln-IV, Misc, Once, Stop date 09/25/21 4:59:42 EDT, Physician Stop, 09/25/21 4:59:42 EDT Automated Diff Basic Metabolic Panel CBC w/ Auto Diff CTA Abdomen and Pelvis CTA Chest ECG 12 Lead Adult ED Cardiac Monitoring eGFR Extra SST Tube Oxygen Saturation Oxygen Therapy PT & PTT Saline Lock Insert Troponin 0 Hr. Troponin 3 Hr. Troponin 6 Hr. Future Appointments Appointment Date:10/23/2021 10:00:00 AM Scheduled Provider:Pam MUSE CNP Location:FT.Cardiology Clinic Appointment Type:Cardiology Inpatient Follow Up (FT) [facility]04-06-2022 NoteAdmission Information Admitting Physician - Maximiliano STONE DO Hospital Course 66-year-old female with medical history most significant for hyperlipidemia, GERD who came in and was admitted for ACS rule out. EKG showed no overt ST segment elevation. Troponin negative x3. Chest pain had self resolved. Does appear to suffer from some anxiety, her pet dog is experiencing health issues which is a source of anxiety for her. Referred to cardiology outpatient. Follow-up with GI for colonoscopy and IBS We will send stool softeners, and MiraLAX to help exam her with constipation. Significant Findings Constipation Physical Exam Vitals & Measurements T: 36.5 ?C(Oral) TMIN: 36.3 ?C(Oral) TMAX: 36.6 ?C(Oral) HR: 65(Monitored) RR: 16 BP: 100/58 SpO2: 97% WT: 58.7 kg General: alert, no acute distress Psychiatric: cooperative, affect appropriate for age Neurological: awake, alert, oriented, speech normal Cardiovascular: regular rate and rhythm, normal no overt murmurs Respiratory: respirations non labored no adventitious breath sounds Gastrointestinal: soft NT, NG, NR Extremities: no edema, no wound Discharge Plan 1. Chest pain (R07.9: Chest pain, unspecified) Resolved 2. HLD (hyperlipidemia) (E78.5: Hyperlipidemia, unspecified) Chronic Follow up w/PCP 3. GERD (gastroesophageal reflux disease) (K21.9: Gastro-esophageal reflux disease without esophagitis) Chronic Follow up w/PCP 4. DVT prophylaxis (Z29.9: Encounter for prophylactic measures, unspecified) Orders: docusate, 100 mg = 1 cap(s), Oral, BID, PRN for constipation, # 20 cap(s), Refills(s) 0 polyethylene glycol 3350, 17 gram, Oral, Daily, 255 gram, Refill(s) 0, dissolve in water before taking Discharge Patient Patient Discharge Condition Stable Discharge Disposition Home Discharge Medication List Prescriptions Colace 100 mg Cap, 100 mg= 1 cap(s), Oral, BID, PRN MiraLax oral powder for reconstitution, 17 gm, Oral, Daily Home Multiple Vitamins Tab, 1 tab(s), Chewed, Daily Viactiv Multi-Vitamin, 1 tab(s), Chewed, Daily Vitamin D3 1000 intl units oral capsule, 25 mcg= 1 cap(s), Oral, Daily Follow-up With When Contact Information JOSE AMANDA 10/01/2021 11:30 AM EDT [address] [place] [address]- Business (1) Additional Instructions: [facility] [address] [place] [address]- Business (1) Additional Instructions:[facility]:Result Comment: Electronically Signed By: Briana SY, Walter\.br\Date and Time Signed: 09/26/21 11:52 [id number] NoteChief Complaint Pt arrives to ed with c/o chest pain that woke her up at 0400 am. History of Present Illness Patient is 66-year-old female with past medical history as noted below who comes in with above-stated chief complaint. Patient was in her normal state of health until approximately 0330 on 09/25/2021 When she was woken up with left-sided chest pain, left-sided back pain, bilateral arm pain. It was associated with some diaphoresis. Patient denies any associated shortness of breath. Patient does states she has had a chronic cough over the past few months. It is occasionally productive with clear sputum production. Patient thinks the cough is related to seasonal allergies. Patient is normally ableto walk up and down a flight of stairs without any chest pain or shortness of breath. Patient does w alk at least 20 to 30 minutes daily without any chest pain or shortness of breath. Patient has beennoticing an increase in the occurrence of her ocular migraines. There is some change in visual acuity with these migraines but patient does not think she needs new glasses. Patient denies any recent fevers, chills, headache, dysuria, diarrhea, constipation. Of note patient recently completed a 3-day road trip from [place] to [place]. Patient states that her eating habits were poor over the past few days and it was extremely stressful situation. Review of Systems 14 Systems reviewed and negative except as noted in HPI. Physical Exam Vitals & Measurements T: 36.4 ?C(Oral) HR: 74(Monitored) RR: 18 BP: 139/73 SpO2: 98% WT: 62.3 kg WT: 62.3 kg General: alert, no acute distress Skin: warm, dry Head: no trauma, normocephalic Neck: Trachea midline, no adenopathy, no tenderness Eye: normal conjunctiva, sclera clear ENMT: oral mucosa moist, no pharyngeal erythema or exudate. hearing grossly intact Cardiovascular: regular rate and rhythm, no murmur/gallop/rub Respiratory: Lungs CTA, respirations non labored , no w/r/r Gastrointestinal: Positive bowel sound, soft, non distended, no tenderness, no guarding. Extremities: no deformity, no trauma Osteopathic: Deferred due to being noncontributory to current case. Neurological: oriented x 4, LOC appropriate for age, CN II-XII intact, motor strength equal & normal bilaterally, sensation equal & normal bilaterally, speech normal Psychiatric: cooperative, affect appropriate for age, normal judgement, normal psychiatric thoughts. Lab Results WBC: 6.6 E9/L (09/25/21 04:48:00) RBC: 4.5 E12/L (09/25/21 04:48:00) HGB: 14.1 gm/dL (09/25/21 04:48:00) Hct: 41.1 % (09/25/21 04:48:00) MCV: 91.1 fL (09/25/21 04:48:00) MCH: 31.2 pg (09/25/21 04:48:00) MCHC: 34.2 gm/dL (09/25/21 04:48:00) RDW: 13.9 % (09/25/21 04:48:00) Platelet: 251 E9/L (09/25/21 04:48:00) MPV: 8.7 fL (09/25/21 04:48:00) Neutro Auto: 50.4 % (09/25/21 04:48:00) Lymph Auto: 37.2 % (09/25/21 04:48:00) [place] Auto: 9.8 % (09/25/21 04:48:00) Eos Auto: 2.1 % (09/25/21 04:48:00) Basophil Auto: 0.5 % (09/25/21 04:48:00) Neutro Absolute: 3.3 E9/L (09/25/21 04:48:00) Lymph Absolute: 2.5 E9/L (09/25/21 04:48:00) [place] Absolute: 0.6 E9/L (09/25/21 04:48:00) Eos Absolute: 0.1 E9/L (09/25/21 04:48:00) Basophil Absolute: 0 E9/L (09/25/21 04:48:00) PT: 11.7 second(s) (09/25/21 04:48:00) INR: 1 (09/25/21 04:48:00) PTT: 33.5 second(s) (09/25/21 04:48:00) Glucose Lvl: 98 mg/dL (09/25/21 04:48:00) BUN: 20 mg/dL (09/25/21 04:48:00) Creatinine: 1 mg/dL (09/25/21 04:48:00) eGFR: 56 mL/min/1.73 m2 Low (09/25/21 04:48:00) eGFR AA: >60 (09/25/21 04:48:00) BUN/Creat Ratio: 20 (09/25/21 04:48:00) Sodium Lvl: 136 mmol/L (09/25/21 04:48:00) Potassium Lvl: 3.7 mmol/L (09/25/21 04:48:00) Chloride: 102 mmol/L (09/25/21 04:48:00) CO2: 27 mmol/L (09/25/21 04:48:00) AGAP: 11 mEq/L (09/25/21 04:48:00) Calcium Lvl: 9.6 mg/dL (09/25/21 04:48:00) Troponin: 5.8 pg/mL Low (09/25/21 04:48:00) Assessment/Plan 1. Chest pain (R07.9: Chest pain, unspecified) Most likely atypical. Patient had chest CT angiography done in the emergency department. Preliminary report shows no evidence of PE or aortic dissection. Initial troponin is negative. We will cycle cardiac enzymes. Will check hemoglobin A1c and fasting lipid panel for risk stratification. Other possible causes of chest pain include GERD versus anxiety/stress. 2. HLD (hyperlipidemia) (E78.5: Hyperlipidemia, unspecified) Patient has been recommended in the past to take a statin but because of potential side effects shedeclined. Patient has been using lifestyle changes and states that her cholesterol has decreased from approximately 300 to approximately 250 over the past few years. Will check fasting lipid panel as noted above and treat accordingly. 3. GERD (gastroesophageal reflux disease) (K21.9: Gastro-esophageal reflux disease without esophagitis) Patient states that she does have heartburn from time to time. Will order Tums as needed for time being. 4. DVT prophylaxis (Z29.9: Encounter for proph (more content not included)... [facility] HospitalComment on above:Result Comment: Electronically Signed By: Maximiliano STONE DO\Date and Time Signed: 09/25/21 07:38 EDT 09-25-2021 Hospital Discharge instructions Follow Up Care 09/25/2021 04:39:06 With:[facility] Address: [address] [place] [address]- Business (1) When:10/23/2021 10:00:00 With:JOSE PATEL Address: [address] [place] [address]- Business (1) When:10/01/2021 11:30:00 [facility]11-14-2012 Miscellaneous Notes* Telephone Encounter - Christiano rTiplett - 05/06/2012 11:24 AM EST I spoke to the patient. She has no dysphagia after her medication for hypothyroidism which decreased. According to the patient she was getting way too much. Symptoms might possibly be explained by hyperthyroidism symptoms. She will call me back if she experiences dysphagia again. * Telephone Encounter - iMma Dc - 05/05/2012 11:47 AM EST Per patient, she is back from vacation but states she is feeling well. Patient states she does not think she needs to schedule barium swallow because she is no longer having symptoms. Per patient, her doctor changed her thyroid medication which seems to have helped her entire function better. Patient states she believes she was having swallowing symptoms due to her thyroid but would like Dr. Triplett's advice if this could be true. Dr. Triplett to call patient to discuss and advise. Patient aware Dr. Triplett is on consult service. documented in this encounterOrlando ClinicEvaluation noteNo assessment information availableWooster Community Hospital Work Phone: Evaluation note* Diagnosis OAB (overactive bladder)- Primary Other screening mammogram Urinary frequency Bleeding hemorrhoids Unspecified hemorrhoids with other complication documented in this encounter [facility] HealthcareEvaluation note* Diagnosis Onset Date Resolution Status Admit Date GERD (gastroesophageal reflux disease) acuteNovember 2023 10:24amHypercholesterolemiaacuteNovember 2023 10:24amMedicare annual wellness visit, subsequentacuteNovember 2023 10:24amScreening mammogram for breast canceracuteNov2023 10:24am [facility] Work Phone: Evaluation note* Diagnosis Prolapsed internal hemorrhoids, grade 3- Primary Blood in stool Anorectal pain documented in this encounter [facility] HealthcareEvaluation note* Diagnosis Anorectal pain- Primary Blood in stool Prolapsed internal hemorrhoids, grade 3 documented in this encounter [facility] HealthcareHistory general Narrative - Reported* Type Description Date Medical History GERD Medical HistoryhypothyrodismMedical Historyhiatal herniaMedical Historyspastic colonMedical Historyspastic bladderMedical Historychicken poxMedical History measles-3 day and germanMedical HistorymumpsMedical Historybasal cell carcinoma Surgical HistoryProblem Title : COLONOSCOPY (07777), Problem Status : Active, Surgical HistoryProblem Title : past surgical history reviewed, Problem Description : past surgical history reviewed, Problem Comment : reviewed - no changes required, Problem Status : Resolved,Surgical HistoryProblem Title : surgical procedures, hx of, Problem Description : surgical procedures, hx of, Problem Comment : EGD 2011 Colonoscopy 2012 1979 CONSUELO 2002 Breast Bx B/L 1991, 2005 D&C 1981, Problem Status : Resolved,Surgical HistoryProblem Title : surgical procedures, hx of, Problem Description : surgical procedures, hx of, Problem Comment : EGD 2011 Colonoscopy 2012 1979 CONSUELO/BSO 2002 Breast Bx B/L 1991, 2005 D&C 1981 , Problem Status : Active,Hospitalization History Viral Hepatitis and [id number] HistoryOvarian [id number] [facility] [employer] Other History general Narrative - Reported* Type Description Date Medical History GERD Medical HistoryhypothyrodismMedical Historyhiatal herniaMedical Historyspastic colonMedical Historyspastic bladderMedical Historychicken poxMedical History measles-3 day and germanMedical HistorymumpsMedical Historybasal cell carcinoma Surgical [id number] Historyc-[id number] [id number] Surgical Historybiposy of bilat breasts-uddiyu8857/2005Surgical HistoryD&C1982 Surgical Historytesting done CC/ [id number] Historyskin cancer removal 09/2014Hospitalization HistoryViral Hepatitis and Qnvn9897Tfmjhzhdjzaccev History Ovarian ryxquqzks5442Bnoukrenshvbfku HistorySEE [facility] [employer] Other History of Present illness Narrative* Tomre Bustamante, DO - 11/09/2024 11:15 AM EDT Images from the original note were not included. Mindi Sadler 1955 Mindi Sadler is a 69 y.o. female presents with chief complaint of Follow-up (Hemorrhoids /Fiber supplementation trial ) HPI: HPI Patient is taking the Citrucel and doing great. The issues that she had before are resolved. She still notices the skin tags but she has not having any pain or discomfort or bleeding. She said ithas been a great improvement. SUBJECTIVE: MEDICATIONS: ALLERGIES Current Outpatient Medications Medication Instructions CALCIUM PO 2 times daily hydrocortisone (Anusol-HC) 25 MG suppository Insert 1 suppository twice daily for 2 weeks. solifenacin (VESICARE) 5 mg, Oral, Daily, Swallow tablet whole; do not crush, chew, or split. Allergies Allergen Reactions Codeine GI intolerance and Other Other Reaction(s): Intolerance, Nausea/Vomiting PAST MEDICAL HISTORY: SOCIAL HISTORY SURGICAL HISTORY: Past Medical History: Diagnosis Date Anxiety Basal cell carcinoma Facial Cancer of skin of left lower leg Cataract Dry eyes GERD (gastroesophageal reflux disease) Hepatitis Thyroid disease (CMS/HCC) Social History Tobacco Use Smoking status: Never Smokeless tobacco: Never Substance Use Topics Alcohol use: Yes Alcohol/week: 1.0 standard drink of alcohol Types: 1 Glasses of wine per week Drug use: Never Past Surgical History: Procedure Laterality Date BREAST BIOPSY Right 31 year's ago CATARACT EXTRACTION SECTION, LOW TRANSVERSE August 02 1979 COLONOSCOPY COLONOSCOPY DILATION AND CURETTAGE OF UTERUS EGD HYSTERECTOMY Nov 09 2002 JOSUE CORDERO REVIEW OF SYMPTOMS: Review of Systems Gastrointestinal: Negative for blood in stool and rectal pain. OBJECTIVE: Visit Vitals OB Status Hysterectomy Smoking Status Never Physical Exam Constitutional: Appearance: Normal appearance. She is not ill-appearing. Cardiovascular: Rate and Rhythm: Regular rhythm. Abdominal: General: There is no distension. Tenderness: There is no abdominal tenderness. ASSESSMENT AND PLAN: Assessment/Plan Diagnoses and all orders for this visit: Anorectal pain Blood in stool Prolapsed internal hemorrhoids, grade 3 Great improvement in symptoms with fiber supplementation. If she continues to do well should avoid surgery. If she starts to have changes or worsening or hemorrhoid symptoms that are not resolved with fiber would be a good candidate for PPH stapled hemorrhoid pexy. I am happy to see her again on anas-needed basis otherwise she is discharged from my care. I congratulated her on her lifestyle change and improvement. [facility] Narrative No data available for this section [facility] No data available for this section [facility] Advance Directives No Advanced Directives Records FoundDocuments on File TypeDate RecordedPatient RepresentativeExplanationAdvance Directives and Living WillPower of AttorneyTypeDate RecordedPatient RepresentativeExplanationACP- Advance DirectiveACP-Power of AttorneyTypeDate RecordedPatient Tank House Operator Helper ExplanationAdvance Directives and Living WillPower of Core Sticker Advance Directive Response Recorded Date/ Time Advance Directives No April 04, 2021 1:31pm Advance Directive Response Recorded Date/ Time Advance Directives No April 04, 2021 12:31pm Reason for Referral StatusReasonSpecialtyDiagnoses / ProceduresReferred By ContactReferred To ContactAuthorizedRadiology Diagnoses Breast cancer screening by mammogram Procedures AMARI DIGITAL SCREEN W OR WO CAD BILATERAL Anabel Tripp MD [address] [place] [address] StatusReasonSpecialtyDiagnoses / ProceduresReferred By ContactReferred To ContactAuthorizedRadiology Diagnoses Breast cancer screening Procedures AMARI DIGITAL SCREEN W OR WO CAD BILATERAL Anabel Tripp MD [address] [place] [address] Assessments Diagnosis Breast cancer screening by mammogram Diagnosis Breast cancer screening Breast screening, unspecified Summary Purpose Family History No Family History Records Found Relationship Condition Age at Onset Recorded Date/T anne Not Specified No pertinent family history Unknown Relationship Condition Age at Onset Recorded Date/T anne Not Specified No pertinent family history Unknown fatherDeceasedUnknownfamily memberDeceasedUnknownsonDeceasedUnknown Chief Complaint and Reason for Visit Chief Complaint Screening Chief Complaint Screening z78.0 z13.820 Chief Complaint Admit Date CC Adult Risk Stratification May 052023 10:29am Screening May 07, 2024 1:58pm Chief Complaint Admit Date CC Adult Risk Stratification May 052023 10:29am Screening May 07, 2024 1:58pm Wellness May 10, 2024 10:24am Reason for Visit Admit Date GERD (gastroesophageal reflux disease) N ovember 2023 10:24am Hypercholesterolemia May 10, 2024 10:24am Medicare annual wellness visit, subseque nt May 10, 2024 10:24am Screening mammogram for breast cancer No vember 2023 10:24am Additional Source Comments Reason for Visit (unrecogniz ed section and content) StatusReasonSpecialtyDiagnoses / ProceduresReferred By ContactReferred To ContactClosedRadiology Diagnoses Encounter for screening mammogram for malignant neoplasm of breast Procedures HC MAMMOGRAM DIGITAL SCREEN BILAT Anabel Tripp MD [address] [place] [address] [facility] [address] [place] [address] StatusReasonSpecialtyDiagnoses / ProceduresReferred By ContactReferred To ContactOpenRadiology Diagnoses Encounter for screening mammogram for malignant neoplasm of breast Procedures HC MAMMO SCREENING INCL CAD IF PERF Anabel Tripp MD [address] [place] [address] [facility] [address] [place] [address] ReasonCommentsConsulthemorrhoidsSpecialtyDiagnoses / ProceduresReferred By ContactReferred To ContactGeneral Surgery Diagnoses Unspecified hemorrhoids Procedures [place] OFFICE/OUTPATIENT EST PT MAY NOT REQ PHYS/QHP Perez Meyers MD [address] [facility] [[email or web address] [address] [place] [address] Phone: tel: fax: Tomer Bustamante, DO [address] [facility] [address] [place] [address] Phone: tel: fax: Referral IDStatusReasonStart DateExpiration DateVisits RequestedVisits [id number] Consult and Treat /[id number]-azJghlfhslvmo Fiber supplementation trial INFORMATION SOURCE (unrecogn ized section and content) DATE CREATED AUTHOR 02/26/2020 [facility] DATE CREATED AUTHOR AUTHOR'S ORGANIZ ATION 11/09/2021 [facility] DATE CREATED AUTHOR AUTHOR'S ORGANIZ ATION 02/15/2022 [facility] DATE CREATED AUTHOR AUTHOR'S ORGANIZ ATION 05/03/2022 [facility] DATE CREATED AUTHOR AUTHOR'S ORGANIZ ATION 05/14/2024 [facility] DATE CREATED AUTHOR AUTHOR'S ORGANIZ ATION 11/10/2024 [facility] EPIC Source Comments (unrecognize d section and content) In the event this informatio n is protected by the Federal Confidentiality of Alcohol and Drug Abuse Patient Records regulations: The Federal rules restrict any use of the information to criminally investigate or prosecute any alcohol or drug abuse patient.[facility] Care Teams (unrecognized sec tion and content) Team Status: Active Member Role Status Dates Jose Patel DO Primary Care Provider Active Team Status: Active Member Role Status Dates Jose aPtel DO Primary Care Provide r, Attending Provider Active Start: May 03, 2024 Team Status: Active Member Role Status Dates Jose Patel DO Primary Care Provide r, Attending Provider Active Start: May 05, 2024 Team Status: Inactive Member Role Status Dates Jose Patel DO Primary Care Provider Active Start: May 07, 2024 End: May 07Az Bowens ProviderActiveStart: May 07, 2024 End: May 07, 2024 Team Status: Inactive Member Role Status Dates Jose Patel DO Primary Care Provider Active Az Black ProviderActiveTeam MemberRelationshipSpecialtyStart DateEnd Date Jose Patel MD [address] [place] [address] PCP - GeneralInternal Aoqouqxp31/31/24Team MemberRelationshipSpecialtyStart Date End Date Jose Patel MD [address] [place] [address] PCP - GeneralInternal Vwixjsee34/31/24 Team Status: Inactive Member Role Status Dates Jose Patel DO Primary Care Provide r, Attending Provider Active Start: May 10, 2024 End: May 10, 2024Team MemberRelationshipSpecialtyStart DateEnd Date Jose Patel MD [address] [place] [id number] PCP - GeneralInternal Medicine10/12/24Team MemberRelationshipSpecialtyStart Date End Date Jose Patel DO [address] [place] [address] PCP - GeneralInternal Medicine10/12/24 Goals (unrecognized section and content) Goals may be documented in a n alternate section FOR RECORDS PERTAINING TO PATIENTS WHO ARE OR HAVE BEEN ENROLLED IN A CHEMICAL DEPENDENCY/SUBSTANCEABUSE PROGRAM, SOME INFORMATION MAY BE OMITTED. This clinical summary was aggregated from multiple sources. Caution should be exercised in using it in the provision of clinical care. This summary normalizes information from multiple sources, and as a consequence, information in this document may materially change the coding, format and clinical context of patient data. In addition, data may be omitted in some cases. CLINICAL DECISIONS SHOULD BE BASED ON THE PRIMARY CLINICAL RECORDS. [email or web address] [facility]. provides no warranty or guarantee of the accuracy or completeness of information in this document.
[2025-05-11 09:38] LABS: Hematocrit 41.9 % (36.0-48.0); Hemoglobin 13.7 g/dL (12.0-16.0); Immature Granulocytes Abs Auto 0.00 10^3/uL (0.00-0.03); Immature Granulocytes Pct Auto 0.0 % (0.0-0.5); Lymphocytes Absolute Auto 1.5 10^3/uL (1.2-3.8); Mean Corpuscular HGB Conc 32.7 g/dL (29.9-35.2); Mean Corpuscular Hemoglobin 30.7 pg (26.7-34.0); Mean Corpuscular Volume 93.9 fL (81.0-99.0); Platelet Count 251 10^3/uL (150-450); Red Blood Count 4.46 10^6/uL (4.20-5.40); White Blood Count 4.8 10^3/uL (4.0-11.0)
[2025-05-11 10:43] LABS: Alanine Aminotransferase 30 U/L (14-59); Albumin Globulin Ratio 1.4; Albumin Level 4.1 g/dL (3.4-5.0); Alkaline Phosphatase 72 U/L (46-116); Anion Gap 11.8; Aspartate Amino Transferase 12 U/L (15-37); Blood Urea Nitrogen 17.0 mg/dL (7.0-18.0); Calcium 9.1 mg/dL (8.5-10.1); Carbon Dioxide 28.6 mmol/L (21.0-32.0); Chloride 106 mmol/L (98-107); Cholesterol 301 mg/dL (<=200); Estimated GFR (African America >60 (>=60 mL/min/1.73m^2); Estimated GFR (Non-African Ame >60 (>=60 mL/min/1.73m^2); Globulin 3.0 g/dL; Glucose 95 mg/dL (74-106); HDL Cholesterol 58 mg/dL (40-60); Potassium 4.4 mmol/L (3.5-5.1); Sodium 142 mmol/L (136-145); Thyroid Stimulating Hormone 3.351 uIU/mL (0.358-3.740); Total Protein 7.1 g/dL (6.4-8.2); Triglycerides 144 mg/dL (<=150); VLDL CHOLESTEROL 28.8 mg/dL
== END 2025-05-11 09:31 | disposition home or self-care (01) ==
LOC: LAB 09:30
PROVIDERS: PCP Internal Medicine; Visit Provider Internal Medicine
DX: E78.00 Pure hypercholesterolemia, unspecified (principal); E03.9 Hypothyroidism, unspecified; R53.83 Other fatigue
CPT/HCPCS: 36415; 80053; 80061; 82306; 84443; 85025